=== PATIENT | male | born 1980 | race Caucasian/White ===

== ENCOUNTER → 2019-02-22 13:43 | Outpatient (CLI) | payer SELFPAY ==
--- NOTE | 2019-02-22 14:44 | CT_ITS ---
CT chest wo con HISTORY: Chest pain, dizziness, shortness of air, tobacco use ITS.REASON: x ORDERING PHYSICIAN: Ganga Hensley MD PATIENT AGE: 38 years COMPARISON: None Technique: Axial images were obtained. Sagittal, and coronal reformatted images are also generated and reviewed. All CT scans at the facility use one or more dose reduction, viz: automated exposure control, ma/kV adjustment per patient size (including targeted exams where dose is matched to indication, i.e. head), or iterative reconstruction technique. FINDINGS There is mild haziness of the anterior mediastinal fat nonspecific and may be related to residual thymic tissue. Scattered small lymph nodes are present in the mediastinum and nadeen. Normal heart size. Coronary artery calcifications are not identified There is mild hyperinflation with attenuation of the peripheral pulmonary vessels consistent with COPD. There are patchy density in the right lung base posteriorly. Calcified nodule present in the right lower lobe anteriorly. Calcified nodes are present in the subcarinal region. No suspicious pulmonary nodules are evident. There is also some patchy groundglass density in the left lung base posteriorly. Upper abdominal images show these to isodense lesions of the left hepatic lobe measuring approximately 8 and 9 mm and may represent hepatic cyst small to categorize. No acute bony findings are evident. IMPRESSION: 1. COPD. 2. Patchy groundglass density in both lung bases posteriorly nonspecific and may be due to areas of atelectasis or patchy pneumonitis 3. Other nonspecific findings as described above
== END ==
PROVIDERS: Referring Provider Internal Medicine Cardiovascular Disease; Visit Provider Internal Medicine Cardiovascular Disease
DX: R06.02 Shortness of breath (principal); R07.9 Chest pain, unspecified; Z72.0 Tobacco use
CPT/HCPCS: 71250; 93017

== ENCOUNTER → 2019-03-04 17:40 | Outpatient (CLI) | payer SELFPAY | PROVIDERS: Visit Provider Internal Medicine Cardiovascular Disease | DX: R07.9 Chest pain, unspecified (principal); R06.02 Shortness of breath; R94.31 Abnormal electrocardiogram [ECG] [EKG]; R53.83 Other fatigue; F17.200 Nicotine dependence, unspecified, uncomplicated | CPT/HCPCS: 95806 ==

== ENCOUNTER 2019-12-06 16:26 | Emergency (ER) | payer MEDICAID, SELFPAY ==
[2019-12-06 16:36] VITALS: BP 122/75; PULSE 78; RESP 20; TEMP 36.8; O2SAT 99; BMI 27.0
[2019-12-06 16:44] VITALS: BP 122/75; PULSE 78; RESP 20; TEMP 36.8; O2SAT 99; BMI 27.8
--- NOTE | 2019-12-06 17:03 | HMH.EDUTC ---
[facility] [place] Clinical Impression: Dental abscess Disposition: Home, Self-Care Condition on Discharge: Good Instructions: Tooth Abscess Additional Instructions: Drink plenty of fluids. Take the ibuprofen for pain that I sent to your pharmacy. Take the medications as directed. Follow up with your regular doctor. You have to follow up with a dentist. GO TO THE ER FOR ANY WORSENING SYMPTOMS Prescriptions: Ibuprofen [Ibuprofen 800mg Tablet] 800 mg PO Q8HP PRN #30 tab PRN Reason: Moderate Pain Transmission Status: Received by [facility] Amoxicillin/Potassium Clav [Augmentin 875-125 Tablet] 1 tab PO Q12H 10 Days #20 tab Transmission Status: Received by [facility] Referrals: Provider,Referral, [Primary Care Provider] - Time of Disposition: 17:06 Medical Decision Making - Medical Records Medical records reviewed: Yes: I reviewed the patient's medical records. - [place] Inquiry Pt receiving controlled substance: No Vital Signs: 12/06/19 16:36 12/06/19 16:44 12/06/19 17:08 Temperature 98.2 F 98.2 F 98.2 F Temperature Source Oral Oral Oral Pulse Rate 78 Pulse Rate [Left Radial] 78 78 Respiratory Rate 20 20 20 Blood Pressure 122/75 Blood Pressure [Left Arm] 122/75 122/75 Blood Pressure Mean [Left Arm] 90 90 Blood Pressure Source Automatic Cuff Blood Pressure Source [Left Arm] Automatic Cuff Automatic Cuff Blood Pressure Position Sitting Blood Pressure Position [Left Arm] Sitting Sitting 02 Sat by Pulse Oximetry 99 99 Oxygen Delivery Method Room Air Room Air Room Air - Lab Data Lab results reviewed: No: I reviewed the patient's lab results. Orders (Tests/Meds): ED MEDICATIONS Discontinued Medications Generic Name Dose Route Start Last Admin Trade Name Freq PRN Reason Stop Dose Admin Ceftriaxone Sodium 1 gm 12/06/19 17:02 12/06/19 17:03 Rocephin 1gm Vial IM 12/06/19 17:03 1 gm ONCE ONE Administration Protocol Ketorolac Tromethamine 60 mg 12/06/19 17:02 12/06/19 17:03 Toradol 60mg/2ml Vial IM 12/06/19 17:03 60 mg ONCE ONE Administration Lidocaine HCl 0 ml 12/06/19 17:02 12/06/19 17:03 Lidocaine 1% 10ml Mdv IM 12/06/19 17:03 2.1 ml ONCE ONE Administration [facility] [place] - General Stated complaint: dental pain Time Seen by Provider: 12/06/19 17:03 Mode of Arrival: Family Vehicle Source of Information: Patient Limitations: No Limitations Description of Symptoms (Recalled from Triage Doc. by RN): PT C/O LT JAW PAIN SINCE YESTERDAY THAT HAS WORSENED TODAY AND GIVING HIM A CORNEJO. PT REPORTS THAT IT FEELS LIKE DENTAL PAIN, BUT HES MISSING TEETH. HEENT Symptoms (Recalled from RN notes): Yes Resp Symptoms (Recalled from RN notes): No Skin Symptoms (Recalled from RN notes): No MS Symptoms (Recalled from RN notes): No Functional Status (Recalled from RN notes): N/A - History of Present Illness Provider Complaint: He c/o left upper dental pain and left jaw pain for the past 3 days. He states that he has a history of multiple cavities and he thinks he has an abscess. He denies any fever or chills. - Related Data Home Medications Medication Instructions Recorded Confirmed Buprenorphine HCl/Naloxone HCl 1 each SL DAILY 02/09/19 04/11/19 [Suboxone 8 mg-2 mg Sl Film] Previous Rx's Medication Instructions Recorded omeprazole 40 mg capsule,delayed 40 mg PO DAILY #30 cap 02/10/19 release Amoxicillin/Potassium Clav 1 tab PO Q12H 10 Days #20 tab 12/06/19 [Augmentin 875-125 Tablet] Ibuprofen [Ibuprofen 800mg 800 mg PO Q8HP PRN #30 tab 12/06/19 Tablet] Allergies Allergy/AdvReac Type Severity Reaction Status Date / Time No Known Allergies Allergy Verified 10/12/19 10:01 - Worker's Comp Is this a Worker's Comp case?: No [facility] History - Hepatitis A Screen Drug use history?: No High risk sexual behaviors?: No History of sexually transmitted infection?: No Currently employe
[2019-12-06 17:08] VITALS: BP 122/75; PULSE 78; RESP 20; TEMP 36.8; O2SAT 99
== END 2019-12-06 17:16 | disposition home or self-care (01) ==
PROVIDERS: Emergency Provider Nurse Practitioner Family
DX: K04.7 Periapical abscess without sinus (principal); F17.210 Nicotine dependence, cigarettes, uncomplicated; K02.9 Dental caries, unspecified
CPT/HCPCS: 96372; 99201

== ENCOUNTER 2020-09-14 17:56 | Emergency (ER) | payer MEDICAID, SELFPAY ==
[2020-09-14 18:00] VITALS: BP 125/77; PULSE 84; RESP 14; TEMP 36.6; O2SAT 98; BMI 27.0
--- NOTE | 2020-09-14 18:21 | HMH.EDUTC ---
[facility] Disposition Clinical Impression: Dental abscess, Need for Tdap vaccination Laceration of right index finger Qualifiers: Encounter type: initial encounter Damage to nail status: without damage Foreign body presence: without foreign body Qualified Code(s): S61.210A - Laceration without foreign body of right index finger without damage to nail, initial encounter Disposition: Home, Self-Care Condition on Discharge: Good Instructions: How to Care for a Laceration After Repair, Tooth Abscess, Tetanus, Diphtheria, Pertussis (Tdap) Vaccine Additional Instructions: Drink plenty of fluids. You have to be seen by a dentist. Make sure you call and get yourself an appointment [place]. Take tylenol or ibuprofen for pain or fever. Watch the injury to your finger for any signs of infection, such as redness, drainage, swelling etc. Follow up with your regular doctor. GO TO THE ER FOR ANY WORSENING SYMPTOMS Prescriptions: Ibuprofen [Ibuprofen 600mg Tablet] 600 mg PO Q6HP PRN #30 tab PRN Reason: Mild Pain Transmission Status: Received by [facility] Amoxicillin/Potassium Clav [Augmentin 875-125 Tablet] 1 tab PO Q12H 10 Days #20 tab Transmission Status: Received by [facility] Mupirocin [Bactroban 2% Ointment 22gm tube] 1 applicatio TP TID 7 Days #1 tube Transmission Status: Received by [facility] Referrals: Kelvin Weiss [Primary Care Provider] - Time of Disposition: 18:34 Medical Decision Making - Medical Records Medical records reviewed: No: I reviewed the patient's medical records. - [place] Inquiry Pt receiving controlled substance: No Vital Signs: 09/14/20 18:00 09/14/20 18:45 Temperature 97.9 F 97.9 F Temperature Source Oral Pulse Rate 84 Pulse Rate [Right Brachial] 84 Respiratory Rate 14 14 Blood Pressure 125/77 Blood Pressure [Right Arm] 125/77 Blood Pressure Mean [Right Arm] 93 Blood Pressure Source [Right Arm] Automatic Cuff Blood Pressure Position [Right Arm] Sitting 02 Sat by Pulse Oximetry 98 Oxygen Delivery Method Room Air Orders (Tests/Meds): ED MEDICATIONS Discontinued Medications Generic Name Dose Route Start Last Admin Trade Name Freq PRN Reason Stop Dose Admin Ceftriaxone Sodium 1 gm 09/14/20 18:31 09/14/20 18:35 Ceftriaxone 1gm Vial IM 09/14/20 18:32 1 gm ONCE ONE Administration Protocol Lidocaine HCl 0 ml 09/14/20 18:31 09/14/20 18:35 Lidocaine 1% 5ml Pf Vial IM 09/14/20 18:32 2.1 ml ONCE ONE Administration Tetanus/Reduced Diphtheria/Acell Pertussis 0.5 ml 09/14/20 18:31 09/14/20 18:35 Tet/Diphth/Pert-Adult 0.5ml Syringe IM 09/14/20 18:32 0.5 ml .ONCE ONE Administration [facility] HPI - General Stated complaint: DENTAL PAIN Time Seen by Provider: 09/14/20 18:21 Mode of Arrival: Ambulatory Limitations: No Limitations Description of Symptoms (Recalled from Triage Doc. by RN): PATIENT C/O SWELLING IN ROOF OF MOUTH X 3 DAYS AND CUT ON LEFT INDEX FINGER THAT'S POSSIBLY INFECTED HEENT Symptoms (Recalled from RN notes): No Resp Symptoms (Recalled from RN notes): No Skin Symptoms (Recalled from RN notes): No MS Symptoms (Recalled from RN notes): No Functional Status (Recalled from RN notes): wnl - History of Present Illness Provider Complaint: He states that he has multiple abscessed teeth and he has a knot of infection on the roof of his mouth. This has been present for about a week. He denies any fever or chills. He also has a superficial laceration on his right index finger. He states that he was cut with a piece of metal about 4 days ago. His tetanus immunization is not up to date. - Related Data Home Medications Medication Instructions Recorded Confirmed Buprenorphine HCl/Naloxone HCl 1 each SL DAILY 02/09/19 04/11/19 [Suboxone 8 mg-2 mg Sl Film] Previous Rx's Medication Instructions Recorded omeprazole 40 mg capsule,delayed 40 mg PO DAILY #30 cap 02/10/19
[2020-09-14 18:45] VITALS: BP 125/77; PULSE 84; RESP 14; TEMP 36.6; O2SAT 98
== END 2020-09-14 18:47 | disposition home or self-care (01) ==
LOC: UTC 18:00
PROVIDERS: Emergency Provider Nurse Practitioner Family; PCP Family Medicine
DX: S61.210A Laceration without foreign body of right index finger without damage to nail, initial encounter (principal); K04.7 Periapical abscess without sinus; Z23 Encounter for immunization; K21.9 Gastro-esophageal reflux disease without esophagitis; F17.210 Nicotine dependence, cigarettes, uncomplicated; W26.8XXA Contact with other sharp object(s), not elsewhere classified, initial encounter
CPT/HCPCS: 90471; 90715; 96372; 99202; G0463

== ENCOUNTER 2020-11-05 10:28 | Emergency (ER) | payer MEDICAID, SELFPAY ==
[2020-11-05 10:30] VITALS: BP 126/82; PULSE 74; RESP 14; TEMP 36.8; O2SAT 98; BMI 27.1
--- NOTE | 2020-11-05 10:53 | XR_ITS ---
PROCEDURE: XR KNEE RT 3V CLINICAL INDICATION: pain COMPARISON: No exams were available for comparison FINDINGS: No fracture or dislocation. No lytic or blastic change. There is normal mineralization. The joint spaces are well-preserved. No significant degenerative/arthritic changes. No erosive changes evident. Other findings:None. IMPRESSION: No acute findings. Dictated by: Niraj Amaya MD 11/05/2020 12:19 Niraj Amaya MD in [place] 11/05/2020 12:19
--- NOTE | 2020-11-05 11:25 | HMH.EDUTC ---
[facility] [place] Disposition Clinical Impression: Right knee pain Qualifiers: Chronicity: acute Qualified Code(s): M25.561 - Pain in right knee Disposition: Home, Self-Care Condition on Discharge: Good Instructions: DI for Knee Pain Additional Instructions: Rest the extremity, apply ice for 15 minutes as tolerated three or four times per day, Wear the liv wrap for compression, Elevate the extremity as tolerated while you are resting. Take ibuprofen for pain. I sent in a prescription to your pharmacy. Follow up with Dr. Salazar (orthopedics). I put in a referral but you need to call her office and schedule an appointment. Follow up with your regular doctor. GO TO THE ER FOR ANY WORSENING SYMPTOMS Prescriptions: Ibuprofen [Ibuprofen 800mg Tablet] 800 mg PO Q8HP PRN #30 tab PRN Reason: Moderate Pain Transmission Status: Received by [facility] Referrals: PCP,Omayra [Primary Care Provider] - Carmelita Salazar MD [Physician] - Time of Disposition: 11:34 Medical Decision Making - Medical Records Medical records reviewed: No: I reviewed the patient's medical records. - [place] Inquiry Pt receiving controlled substance: No Vital Signs: 11/05/20 10:30 11/05/20 11:35 Temperature 98.3 F 98.3 F Temperature Source Oral Pulse Rate 74 Pulse Rate [Right Brachial] 74 Respiratory Rate 14 14 Blood Pressure 126/82 Blood Pressure [Right Arm] 126/82 Blood Pressure Mean [Right Arm] 96 Blood Pressure Source [Right Arm] Automatic Cuff Blood Pressure Position [Right Arm] Sitting 02 Sat by Pulse Oximetry 98 Oxygen Delivery Method Room Air - Radiology Data #1 Image(s): Knee Image Reviewed: Yes I reviewed the patient's radiology image Preliminary Findings: Normal/NAD PROCEDURE: XR KNEE RT 3V CLINICAL INDICATION: pain COMPARISON: No exams were available for comparison FINDINGS: No fracture or dislocation. No lytic or blastic change. There is normal mineralization. The joint spaces are well-preserved. No significant degenerative/arthritic changes. No erosive changes evident. Other findings:None. IMPRESSION: No acute findings. Dictated by: Niraj Amaya MD 11/05/2020 12:19 Niraj Amaya MD in [place] 11/05/2020 12:19 [facility] [place] HPI - General Stated complaint: rt knee pain Time Seen by Provider: 11/05/20 10:30 Mode of Arrival: Ambulatory Source of Information: Patient Limitations: No Limitations Description of Symptoms (Recalled from Triage Doc. by RN): PATIENT C/O RIGHT KNEE PAIN THAT STARTED THIS MORNING. STATES HE WAS MOVING HEAVY STUFF YESTERDAY HEENT Symptoms (Recalled from RN notes): No Resp Symptoms (Recalled from RN notes): No Skin Symptoms (Recalled from RN notes): No MS Symptoms (Recalled from RN notes): Yes Functional Status (Recalled from RN notes): WNL - History of Present Illness Provider Complaint: He states that he has been having right knee pain for the past 3 days. He has a history of episodes of this pain. He denies any known injury. - Related Data Home Medications Medication Instructions Recorded Confirmed Buprenorphine HCl/Naloxone HCl 1.5 each SL DAILY 11/05/20 11/05/20 [Suboxone 8mg/2mg ODT] Previous Rx's Medication Instructions Recorded Ibuprofen [Ibuprofen 800mg 800 mg PO Q8HP PRN #30 tab 11/05/20 Tablet] Allergies Allergy/AdvReac Type Severity Reaction Status Date / Time No Known Allergies Allergy Verified 10/12/19 10:01 - Worker's Comp Is this a Worker's Comp case?: No [facility] History - Hepatitis A Screen Drug use history?: No High risk sexual behaviors?: No History of sexually transmitted infection?: No Currently employed?: No Childcare worker?: No Do you have indoor plumbing?: Yes Do you have electricity?: Yes Attestation statement:: This patient has been screened for Hepatitis A risk factors. I have reviewed the patient's past medical history: Yes Medical History: Reports:: Gastroesophageal Reflux
[2020-11-05 11:35] VITALS: BP 126/82; PULSE 74; RESP 14; TEMP 36.8; O2SAT 98
== END 2020-11-05 11:38 | disposition home or self-care (01) ==
PROVIDERS: Emergency Provider Nurse Practitioner Family
DX: M25.561 Pain in right knee (principal); K21.9 Gastro-esophageal reflux disease without esophagitis; F17.210 Nicotine dependence, cigarettes, uncomplicated
CPT/HCPCS: 73562; 99202; G0463

== ENCOUNTER 2021-02-09 13:21 | Emergency (ER) | payer MEDICAID, SELFPAY ==
--- NOTE | 2021-02-09 13:25 | XR_ITS ---
PROCEDURE INFORMATION: Exam: XR Right Shoulder Exam date and time: 02/09/2021 1:25 PM Age: 40 years old Clinical indication: Right; Patient HX: PT C/O RT shoulder pain since pulling alot of electrical wire TECHNIQUE: Imaging protocol: XR Right shoulder. Views: 2 or more views. COMPARISON: CHESTWO CT chest wo con 02/22/2019 2:50 PM FINDINGS: Bones/joints: Normal. Soft tissues: Normal. IMPRESSION: No acute findings.
[2021-02-09 13:40] VITALS: BP 129/79; PULSE 61; RESP 19; TEMP 37.1; O2SAT 97; BMI 27.3
--- NOTE | 2021-02-09 14:37 | HMH.EDUTC ---
[facility] [place] Clinical Impression: Shoulder pain Qualifiers: Chronicity: unspecified Laterality: right Qualified Code(s): M25.511 - Pain in right shoulder Disposition: Home, Self-Care Condition on Discharge: Good Additional Instructions: *Ibuprofen wendy 8 hours with meal as needed for pain/inflammation *Not additional anti-inflammatory like motrin, aleve, advil with the above amount of ibuprofen. You can still take Tylenol every 4 hours as needed if you need something else for pain *Ice 20 minutes every 2 hours for the first 48 hours after the initial injury followed by moist heat every 20 minutes 3-4 times a day to affected area *Keep this area active, no movement leads to more stiffness, However take it easy and avoid heavy lifting pushing or pulling *Follow up with you family doctor if no improvement for further treatment Prescriptions: Ibuprofen [Ibuprofen 800mg Tablet] 800 mg PO TIDP PRN #20 tab PRN Reason: Moderate Pain Transmission Status: [facility]ending to [facility] Referrals: Kelvin Weiss [Primary Care Provider] - As needed Time of Disposition: 14:50 Medical Decision Making - [place] Inquiry Pt receiving controlled substance: No [place] was queried for this patient: No Vital Signs: 02/09/21 13:40 Temperature 98.7 F Temperature Source Oral Pulse Rate [Right Brachial] 61 Respiratory Rate 19 Blood Pressure [Right Arm] 129/79 Blood Pressure Mean [Right Arm] 95 Blood Pressure Source [Right Arm] Automatic Cuff Blood Pressure Position [Right Arm] Sitting 02 Sat by Pulse Oximetry 97 Oxygen Delivery Method Room Air - Radiology Data #1 Image(s): Shoulder Image Reviewed: Yes I have reviewed radiologist's interpretation IMPRESSION: No acute findings [facility] [place]PI - General Stated complaint: pain RT shoulder 3 days Time Seen by Provider: 02/09/21 14:37 Mode of Arrival: Ambulatory Source of Information: Patient Limitations: No Limitations Description of Symptoms (Recalled from Triage Doc. by RN): PATIENT C/O RIGHT SHOULDER PAIN X 4 DAYS. NO KNOWN INJURY HEENT Symptoms (Recalled from RN notes): No Resp Symptoms (Recalled from RN notes): No Skin Symptoms (Recalled from RN notes): No MS Symptoms (Recalled from RN notes): Yes Functional Status (Recalled from RN notes): WNL - History of Present Illness Provider Complaint: Patient states that he was pulling wire about a week ago and thinks he may have over did it States that he has been having pain on and off with certain movements in his right shoulder State that he has been able to raise it and move it but at times feels like it is sore and hurts Denies known injury - Related Data Home Medications Medication Instructions Recorded Confirmed Buprenorphine HCl/Naloxone HCl 1.5 each SL DAILY 11/05/20 11/05/20 [Suboxone 8mg/2mg ODT] Previous Rx's Medication Instructions Recorded Ibuprofen [Ibuprofen 800mg 800 mg PO Q8HP PRN #30 tab 11/05/20 Tablet] Ibuprofen [Ibuprofen 800mg 800 mg PO TIDP PRN #20 tab 02/09/21 Tablet] Allergies Allergy/AdvReac Type Severity Reaction Status Date / Time No Known Allergies Allergy Verified 10/12/19 10:01 - Worker's Comp Is this a Worker's Comp case?: No [facility] History - Hepatitis A Screen Drug use history?: No High risk sexual behaviors?: No History of sexually transmitted infection?: No Currently employed?: No Childcare worker?: No Do you have indoor plumbing?: Yes Do you have electricity?: Yes Attestation statement:: This patient has been screened for Hepatitis A risk factors. I have reviewed the patient's past medical history: Yes Medical History: Reports:: Gastroesophageal Reflux Disease(GERD) Denies:: Diabetes Mellitus Type 1, Diabetes Mellitus Type 2, Seizures Other Surgeries: Yes: Cardiac Catheterization, Other (Jaw Sx) Fractures: Yes - Social History Smoking Status: Current every day smoker Tobacco Type: cigarettes # Packs/Day (cigarettes): 1 #Yr
[2021-02-09 15:15] VITALS: BP 129/79; PULSE 61; RESP 19; TEMP 37.1; O2SAT 97
== END 2021-02-09 15:16 | disposition home or self-care (01) ==
PROVIDERS: Emergency Provider Nurse Practitioner; PCP Family Medicine
DX: M25.511 Pain in right shoulder (principal); X50.0XXA Overexertion from strenuous movement or load, initial encounter; K21.9 Gastro-esophageal reflux disease without esophagitis; F17.210 Nicotine dependence, cigarettes, uncomplicated
CPT/HCPCS: 73030; 99202; G0463

== ENCOUNTER → 2021-06-20 10:41 | Outpatient (CLI) | payer MEDICAID, SELFPAY | PROVIDERS: Visit Provider Nurse Practitioner | DX: Z20.822 Contact with and (suspected) exposure to COVID-19 (principal); U07.1 COVID-19 | CPT/HCPCS: C9803; U0003; U0005 ==

== ENCOUNTER 2021-10-29 09:21 | Emergency (ER) | payer MEDICAID, SELFPAY ==
[2021-10-29 10:12] VITALS: BP 121/89; PULSE 79; RESP 19; TEMP 37; O2SAT 96; BMI 27.9
--- NOTE | 2021-10-29 10:48 | HMH.EDUTC ---
[facility] [place] Clinical Impression: Shingles Qualifiers: Herpes zoster complications: without complications Qualified Code(s): B02.9 - Zoster without complications Disposition: Home, Self-Care Condition on Discharge: Good Instructions: Shingles, DI for Shingles Additional Instructions: Take the medications as directed. Drink plenty of water with the acyclovir. Follow up with your primary care physician. GO TO THE ER FOR ANY WORSENING SYMPTOMS OR CONCERNS Don't put the triamcinolone cream on your groin area. Prescriptions: Acyclovir 800 mg PO 5XDAY 7 Days #35 tab Transmission Status: Received by [facility] predniSONE [Deltasone 10mg tablet] 10 mg PO DAILY 9 Days #21 tab Transmission Status: Received by [facility] Triamcinolone Acetonide 1 applicatio TP TIDP PRN 7 Days #1 gm PRN Reason: Itching Transmission Status: Received by [facility] Referrals: Provider,Referral, [Primary Care Provider] - Time of Disposition: 11:35 Medical Decision Making - Medical Records Medical records reviewed: No: I reviewed the patient's medical records. - [place] Inquiry Pt receiving controlled substance: No Vital Signs: 10/29/21 10:12 10/29/21 11:36 Temperature 98.6 F 98.6 F Temperature Source Oral Pulse Rate 79 Pulse Rate [Left] 79 Respiratory Rate 19 19 Blood Pressure 121/89 Blood Pressure [Right Arm] 121/89 Blood Pressure Mean [Right Arm] 99 02 Sat by Pulse Oximetry 96 [facility] [place]PI - General Stated complaint: rash Time Seen by Provider: 10/29/21 11:09 Mode of Arrival: Ambulatory Source of Information: Spouse Limitations: No Limitations Description of Symptoms (Recalled from Triage Doc. by RN): pt c/o a rash on his RLQ x1 wk. HEENT Symptoms (Recalled from RN notes): No Resp Symptoms (Recalled from RN notes): No Skin Symptoms (Recalled from RN notes): Yes MS Symptoms (Recalled from RN notes): No Functional Status (Recalled from RN notes): wnl - History of Present Illness Provider Complaint: He has had a rash on his right lower quadrant of his abdomen for the past 1 week. - Related Data Home Medications Medication Instructions Recorded Confirmed Buprenorphine HCl/Naloxone HCl 1.5 each SL DAILY 11/05/20 11/05/20 [Suboxone 8mg/2mg ODT] Previous Rx's Medication Instructions Recorded Ibuprofen [Ibuprofen 800mg 800 mg PO Q8HP PRN #30 tab 11/05/20 Tablet] Ibuprofen [Ibuprofen 800mg 800 mg PO TIDP PRN #20 tab 02/09/21 Tablet] methylPREDNISolone [Medrol 4mg 4 mg PO DIRECTED #21 tab 02/09/21 tab] Acyclovir 800 mg PO 5XDAY 7 Days #35 tab 10/29/21 Triamcinolone Acetonide 1 applicatio TP TIDP PRN 7 Days #1 10/29/21 gm predniSONE [Deltasone 10mg tablet] 10 mg PO DAILY 9 Days #21 tab 10/29/21 Allergies Allergy/AdvReac Type Severity Reaction Status Date / Time No Known Allergies Allergy Verified 10/12/19 10:01 - Worker's Comp Is this a Worker's Comp case?: No [facility] History - Hepatitis A Screen Drug use history?: No High risk sexual behaviors?: No History of sexually transmitted infection?: No Currently employed?: No Childcare worker?: No Do you have indoor plumbing?: Yes Do you have electricity?: Yes Attestation statement:: This patient has been screened for Hepatitis A risk factors. I have reviewed the patient's past medical history: Yes Medical History: Reports:: Gastroesophageal Reflux Disease(GERD) Denies:: Diabetes Mellitus Type 1, Diabetes Mellitus Type 2, Seizures Other Surgeries: Yes: Cardiac Catheterization, Other (Jaw Sx) Fractures: Yes - Social History Smoking Status: Current every day smoker Tobacco Type: cigarettes # Packs/Day (cigarettes): 1 #Yrs smoked (if former smoker): 20 Alcohol Intake: never Alcohol Intake Frequency:: 3 or more drinks per day Substance Use Type: denies use Occupational Status: other Housing: house Household Members: spouse Family Hx:: Coronary Artery Disease Comm
[2021-10-29 11:36] VITALS: BP 121/89; PULSE 79; RESP 19; TEMP 37
== END 2021-10-29 11:37 | disposition home or self-care (01) ==
PROVIDERS: Emergency Provider Nurse Practitioner Family
DX: B02.9 Zoster without complications (principal); R21 Rash and other nonspecific skin eruption; R06.02 Shortness of breath; R53.82 Chronic fatigue, unspecified; K21.9 Gastro-esophageal reflux disease without esophagitis; R40.0 Somnolence; F17.210 Nicotine dependence, cigarettes, uncomplicated; Z82.49 Family history of ischemic heart disease and other diseases of the circulatory system; Z79.1 Long term (current) use of non-steroidal anti-inflammatories (NSAID); Z79.52 Long term (current) use of systemic steroids; Z79.899 Other long term (current) drug therapy
CPT/HCPCS: 99213; G0463

== ENCOUNTER 2023-02-17 15:23 | Emergency (ER) | payer MEDICAID, SELFPAY ==
[2023-02-17 15:25] VITALS: BP 141/92; PULSE 101; RESP 18; TEMP 37; O2SAT 98; BMI 27.7
--- NOTE | 2023-02-17 15:28 | XR_ITS ---
PROCEDURE INFORMATION: Exam: XR Right Ankle Exam date and time: 02/17/2023 3:27 PM Age: 42 years old Clinical indication: Pain; Ankle; Right; Additional info: Fell off of step TECHNIQUE: Imaging protocol: Radiologic exam of the right ankle. Views: 3 or more views. COMPARISON: CR XR FOOT RT MIN 3V 02/17/2023 3:26 PM FINDINGS: Bones/joints: Degenerative changes in the tibial medial malleolus and medial talus at the tibiotalar articulation compatible with chronic sequelae of prior trauma. No evidence of acute fracture or malalignment. Ankle mortise appears intact. 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 Soft tissues: Soft tissue edema noted. IMPRESSION: 1. No evidence of acute osseous abnormality in the right ankle. 2. Degenerative changes in the tibial medial malleolus and medial talus at the tibiotalar articulation compatible with chronic sequelae of prior trauma. 3. 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
--- NOTE | 2023-02-17 15:28 | XR_ITS ---
PROCEDURE INFORMATION: Exam: XR Right Foot Exam date and time: 02/17/2023 3:26 PM Age: 42 years old Clinical indication: Pain; Foot; Right; Additional info: Fell off of step TECHNIQUE: Imaging protocol: Radiologic exam of the right foot. Views: 3 or more views. COMPARISON: CR XR KNEE RT 3V 11/05/2020 10:53 AM FINDINGS: Bones/joints: No evidence of acute fracture or malalignment. Lisfranc joint appears normal in these non-weightbearing radiographs. 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 Soft tissues: Unremarkable. IMPRESSION: 1. No evidence of acute osseous abnormality in the right foot. 2. 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
--- NOTE | 2023-02-17 16:40 | EXP.UTC ---
Discharge Plan Disposition Patient Disposition: Home, Self-Care Condition: Good Prescriptions Prescriptions: No Action buprenorphine-naloxone 1 EACH tablet, sublingual 1.5 each SL DAILY ibuprofen 800 MG tablet 800 mg PO Q8HP PRN (Reason: Moderate Pain) Qty: 30 0RF ibuprofen 800 MG tablet 800 mg PO TIDP PRN (Reason: Moderate Pain) Qty: 20 0RF methylprednisolone 4 MG tablet 4 mg PO DIRECTED Qty: 21 0RF Rx Instructions: Take as directed on package instructions prednisone 10 MG tablet 10 mg PO DAILY 9 Days Qty: 21 0RF Rx Instructions: Take 40 mg for 3 days, then take 20 mg for 3 days, then take 10 mg for 3 days, then stop. triamcinolone acetonide 15 GM cream 1 applicatio TP TIDP PRN (Reason: Itching) 7 Days Qty: 1 0RF Rx Instructions: 0.1% acyclovir 800 MG tablet 800 mg PO 5XDAY 7 Days Qty: 35 0RF Referrals Follow up/Referrals: Amadeo Marroquin DO [Staff Physician] - See instructions Provider,Referral, [Primary Care Provider] - See instructions Kassy Felder DPM [Staff Physician] - See instructions Activity Restrictions/Add. Instructions Additional Instructions/Restrictions: *weight bearing as tolerated Use crutches to get around *RICE, Rest the extremity, Ice 15-20 minutes 3-4 times daily, Compress- wear the liv wrap as discussed as much as possible to help reduce swelling and pain, Elevate the extremity when at rest *Walking boot is for support and help control swelling, use it except in the shower. Be sure that is not to tight but not to loose either *Elevate when resting? *Ibuprofen 600-800mg every 6-8 hours as needed for pain an inflammation. If need something more can take Tylenol in between doses of Ibuprofen to help Immediately follow up with your family doctor for new or worsening of symptoms, or no noticeable improvement over the next 3-5 days Follow up with your Family Doctor, Orthopedics or Podiatry if pain and swelling persists Clinical Impressions Clinical Impression: Ankle sprain Qualifiers: Encounter type: initial encounter Involved ligament of ankle: unspecified ligament Laterality: right Qualified Code(s): S93.401A - Sprain of unspecified ligament of right ankle, initial encounter Instructions Patient Instructions: How to Use Crutches, How To Perform RICE (Rest, Ice, Compress, Elevate), Ibuprofen, How to Use a Walking Boot Discharge ED Provider: Brenda Fay [facility] General Stated complaint: right ankle pain Mode of Arrival: Ambulatory Source of Information: Patient Limitations: No Limitations Time Seen by Provider: 02/17/23 15:45 Description of Symptoms (Recalled from Triage Doc. by RN): Patient reports right anle pain from missing a step and rolling it at 1400 today. HEENT Symptoms (Recalled from RN notes): No Resp Symptoms (Recalled from RN notes): No Skin Symptoms (Recalled from RN notes): No MS Symptoms (Recalled from RN notes): Yes Functional Status (Recalled from RN notes): wnl History of Present Illness Provider Complaint: Patient states that he was cleaning at home and stepped back and missed a couple steps and rolled his right ankle States that he felt a pop and immediately had pain States that he has hurt this ankle several times over the last few years so he came in to get it checked Related Data Home Medications Medication Instructions Recorded Confirmed buprenorphine 8 mg-naloxone 2 mg 1.5 each SL DAILY ADDICTION 11/05/20 11/05/20 sublingual tablet Previous Rx's Medication Instructions Recorded ibuprofen 800 mg tablet 800 mg PO Q8HP PRN Moderate Pain 11/05/20 #30 tabs ibuprofen 800 mg tablet 800 mg PO TIDP PRN Moderate Pain 02/09/21 #20 tabs methylprednisolone 4 mg tablet 4 mg PO DIRECTED #21 tabs 02/09/21 acyclovir 800 mg tablet 800 mg PO 5XDAY 7 days #35 tabs 10/29/21 prednisone 10 mg tablet 10 mg PO DAILY 9 days #21 tabs 10/29/21 triamcinolone acetonide 0.025 % 1 applicatio TP T
[2023-02-17 17:07] VITALS: BP 141/92; PULSE 101; RESP 18; TEMP 37; O2SAT 98
== END 2023-02-17 17:07 | disposition home or self-care (01) ==
PROVIDERS: Emergency Provider Nurse Practitioner
DX: S93.401A Sprain of unspecified ligament of right ankle, initial encounter (principal); F17.210 Nicotine dependence, cigarettes, uncomplicated
CPT/HCPCS: 73610; 73630; 99212; 99214; G0463

== ENCOUNTER → 2023-03-02 17:25 | Outpatient (CLI) | payer MEDICAID, SELFPAY ==
--- NOTE | 2023-03-02 17:31 | MR_ITS ---
PROCEDURE INFORMATION: Exam: MR Right Lower Extremity Joint Without Contrast; Ankle Exam date and time: 03/02/2023 5:56 PM Age: 42 years old Clinical indication: Pain; Ankle; Right; Additional info: Ankle pain. Instability in ankle. Twisted ankle 2 weeks ago. TECHNIQUE: Imaging protocol: Magnetic resonance imaging of the right lower extremity without contrast. Exam focused on the ankle. COMPARISON: CR XR ANKLE RT MIN 3V 02/17/2023 3:27 PM FINDINGS: Bones/joints: Mild subchondral cystic changes within the anterior medial malleolar tip within adjacent 1.4 cm nonedematous avulsive fragment. Minimal subchondral cystic changes within the anterolateral tibial plafond with associated cartilage signal heterogeneity and thinning. Minimal medial talar process marrow edema. No joint effusion. LIGAMENTS: Distal tibiofibular syndesmosis: Unremarkable. No tear. Anterior talofibular ligament: Complete tear. Posterior talofibular ligament: Unremarkable. No tear. Calcaneofibular ligament: Complete tear. Deltoid ligament complex: Chronic sprain. Chronic avulsive fragmentation at its anterior medial malleolus attachment. TENDONS: Flexor tendons of foot: Unremarkable as visualized. Tibialis posterior tendon: Unremarkable as visualized. Peroneal tendons: Unremarkable as visualized. Extensor tendons of foot: Unremarkable as visualized. Tibialis anterior tendon: Unremarkable as visualized. Achilles tendon: Unremarkable as visualized. Tarsal canal (Sinus tarsi): Unremarkable. Normal signal of the fat. Tarsal tunnel: Unremarkable. Soft tissues: Mild soft tissue swelling about the ankle and at the dorsum of the foot. Plantar fascia: Plantar fascia is unremarkable. IMPRESSION: 1. Complete tears of the anterior talofibular and calcaneofibular ligaments. 2. Chronic deep deltoid ligament sprain with associated chronic avulsive fragmentation of the anterior medial malleolus. 3. Minimal tibiotalar joint degenerative changes. 4. Mild soft tissue swelling about the ankle and at the dorsum of the foot.
--- NOTE | 2023-03-02 17:34 | XR_ITS ---
PROCEDURE INFORMATION: Exam: XR Orbits Exam date and time: 03/02/2023 5:39 PM Age: 42 years old Clinical indication: Screening exam; Additional info: Rule out metallic foreign body for mri TECHNIQUE: Imaging protocol: XR of the orbits. Views: Minimum of 4 views COMPARISON: No relevant prior studies available. FINDINGS: Sinuses: Well aerated. No opacification. Bones/joints: Right mandibular screening fixation hardware. Left maxillary dental filling. Soft tissues: No metallic foreign body projecting over the orbits or soft tissues. IMPRESSION: No metallic foreign body projecting over the orbits or soft tissues.
== END ==
PROVIDERS: Visit Provider Orthopaedic Surgery
DX: M25.571 Pain in right ankle and joints of right foot (principal); S93.401A Sprain of unspecified ligament of right ankle, initial encounter
CPT/HCPCS: 70200; 73721

== ENCOUNTER 2023-03-12 12:21 | Outpatient (RCR) | payer MEDICAID, SELFPAY | END 2023-03-12 14:00 | disposition home or self-care (01) | LOC: PT 12:21 | PROVIDERS: Visit Provider Orthopaedic Surgery | DX: M25.571 Pain in right ankle and joints of right foot (principal); S93.401A Sprain of unspecified ligament of right ankle, initial encounter | CPT/HCPCS: 97760 ==

== ENCOUNTER 2023-05-05 16:00 | Outpatient (RCR) | payer MEDICAID, SELFPAY ==
--- NOTE | 2023-04-03 17:26 | HMH.PTOPEV ---
PT Outpatient Evaluation Rehab PT Outpatient Evaluation Start: 04/03/23 16:23 Freq: Status: Active Protocol: Document 04/03/23 16:27 JULIANO (Rec: 04/03/23 17:25 JULIANO [id number]) E-signed By Yolie Mcneil, PT Outpatient Therapy Subjective History Subjective History Pt presents to the PT clinic with reports of R ankle pain following a fall on February 17, 2023. Pt reports he is having pain and weakness throughout his R ankle. Pt reports that he went to see Dr. Morgan who stated he would not do surgery until he stopped smoking so much. Pt reports he is scheduled to follow-up with Dr. Daniel in May. Pt reports Dr. Daniel told him he had 2 torn ligaments in his R ankle. 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 PMH: none per pt Chief Complaint Pain,Stiff,Swelling,Gives out/ Unstable,Weakness Symptom Type Ache,Throb,Dull Symptoms Relieved By Rest/Positioning,Ice,Brace/ Support,OTC Meds Symptoms Aggravated By Standing,Bending/Stooping, Physical Activity,Twisting, Walking,Lifting Prior Functional Limitations None Current Functional Limitations Lifting,Housework,Driving, Sleeping,Standing,Sitting, Squatting,Recreation Activity, Walking,Stairs,Balance,Bending /Stooping Symptom Description Activity Dependent Level of pain today (0-10) 0 Pain scale - at its best (0-10) 0 Pain scale - at its worst (0-10) 9 Ankle/Foot Eval Gait Observation General Gait Pattern Observation Antalgic Gait,Decrease Weight Bear (R) Assistive Device Ambulation Assistive Device None Palpation Tenderness right Ankle/Foot Palpation Findings Tenderness,Muscle Guarding Ankle/Foot Palpation Overall Comment TTP throughout lateral aspect of ankle, over ATFL/CFL ATF TTP positive CF TTP positive ROM Ankle/Foot Dorsiflexion w/Knee Extended 10 Active Range Motion (degrees) Ankle/Foot Plantar Flexion Active Range 30 of Motion (degrees) Ankle/Foot Eversion Active Range of
== END 2023-05-05 16:05 | disposition home or self-care (01) ==
LOC: PT 16:00
PROVIDERS: Visit Provider Orthopaedic Surgery
DX: M25.571 Pain in right ankle and joints of right foot (principal)
CPT/HCPCS: 97010; 97014; 97035; 97110; 97163; 97530; G0283

== ENCOUNTER 2024-09-25 12:50 | Emergency (ER) | payer MEDICAID, SELFPAY ==
--- NOTE | 2024-09-25 12:54 | XR_ITS ---
PROCEDURE INFORMATION: Exam: XR Right Hand Exam date and time: 09/25/2024 1:12 PM Age: 44 years old Clinical indication: Injury or trauma; Fall; Blunt trauma (contusions or hematomas); Hand; Right TECHNIQUE: Imaging protocol: Radiologic exam of the right hand. Views: 3 or more views. COMPARISON: No relevant prior studies available. FINDINGS: Bones/joints: Osseous structures are intact. No fracture or malalignment. Visualized joint surfaces are preserved. Soft tissues: Unremarkable. IMPRESSION: Negative exam. No acute bony abnormalities.
--- NOTE | 2024-09-25 12:54 | XR_ITS ---
PROCEDURE INFORMATION: Exam: XR Cervical Spine Exam date and time: 09/25/2024 1:07 PM Age: 44 years old Clinical indication: Injury or trauma; Fall; Blunt trauma TECHNIQUE: Imaging protocol: Radiologic exam of the cervical spine. Views: 2 or 3 views. COMPARISON: CR XR ORBIT BILATERAL MIN 4V 03/02/2023 5:39 PM FINDINGS: Bones/joints: Normal alignment. No acute fracture or traumatic spondyloliethesis. Disc heights maintained. Anteriorly fixed healed fracture of the right mandible partially visualized. Soft tissues: Unremarkable. IMPRESSION: No acute findings.
--- NOTE | 2024-09-25 12:54 | XR_ITS ---
PROCEDURE INFORMATION: Exam: XR Left Elbow Exam date and time: 09/25/2024 1:15 PM Age: 44 years old Clinical indication: Injury or trauma; Fall; Blunt trauma (contusions or hematomas); Elbow; Left TECHNIQUE: Imaging protocol: Radiologic exam of the left elbow. Views: 3 or more views. COMPARISON: No relevant prior studies available. FINDINGS: Bones/joints: Osseous structures are intact. No fracture or malalignment. Visualized joint surfaces are preserved. Soft tissues: Unremarkable. No joint effusion detected. IMPRESSION: Negative exam. No acute bony abnormalities.
--- NOTE | 2024-09-25 14:40 | ED_ITS ---
Discharge Plan Disposition Patient Disposition: Home, Self-Care Condition: Good Prescriptions Prescriptions: New cyclobenzaprine 10 mg Tablet 10 mg PO BID PRN (Reason: Muscle Spasm) Qty: 20 0RF ibuprofen [IBU] 800 mg tablet 800 mg PO Q8HP PRN (Reason: Moderate Pain) Qty: 30 0RF No Action buprenorphine-naloxone 1 EACH tablet, sublingual 1.5 each sublingual DAILY Referrals Follow up/Referrals: Amadeo Marroquin DO [Staff Physician] - See instructions Provider,Referral, [Primary Care Provider] - See instructions Activity Restrictions/Add. Instructions Additional Instructions/Restrictions: Rest the affected extremities, Elevate them as tolerated while you are resting. Take ibuprofen for pain. I sent in a prescription to your pharmacy. Follow up with Dr. Marroquin (orthopedics). I put in a referral but you need to call his office and schedule an appointment. Follow up with your regular doctor. GO TO THE ER FOR ANY WORSENING SYMPTOMS Clinical Impressions Clinical Impression: Fall, Elbow pain, left, Hand pain, right, Neck pain Stand Alone Forms Stand Alone Forms: Work/School Release Instructions Patient Instructions: DI for Contusion, DI for Neck Pain, How to Apply an Elastic Wrap on Elbow Print Language Print Language: Slovenian Discharge ED Provider: Osvaldo Li [facility] General Stated complaint: AO 09/24/24 lt elbow, rt hand, neck Time Seen by Provider: 09/25/24 14:39 History of Present Illness Provider Complaint: He states that he was roller skating yesterday when he fell. He is having left elbow pain, right hand pain, and pain in his neck when he twists it. He denies any other symptoms or complaints. Related Data Home Medications ?Medication ?Instructions ?Recorded ?Confirmed buprenorphine 8 mg-naloxone 2 mg 1.5 each sublingual DAILY ADDICTION 11/05/20 09/25/24 sublingual tablet Previous Rx's ?Medication ?Instructions ?Recorded cyclobenzaprine 10 mg tablet 10 mg PO BID PRN Muscle Spasm #20 09/25/24 tabs ibuprofen 800 mg tablet (IBU) 800 mg PO Q8HP PRN Moderate Pain 09/25/24 #30 tabs Allergies Allergy/AdvReac Type Severity Reaction Status Date / Time No Known Allergies Allergy Verified 03/27/23 11:05 [facility] Disclaimer: The information contained in this section may have been updated after the patient was seen, as this information can be updated by other users. Medical History Daytime somnolence Fatigue SOB (shortness of breath) Social History Smoking Status: Current every day smoker tobacco type: cigarettes packs per day: 1 alcohol intake: never substance use type: denies use current occupational status: other Travel in the last 8 weeks: None household members: spouse housing: house Have you lived/traveled outside [place] in past 30 days?: No Contact w/someone who lives/traveled outside [place] past 30 days?: No Exposure to someone with infectious disease in past 14 days?: No Do you have a fever (greater than 100.4 F or 38 C)?: No Have you tested positive for COVID-19: No Exposed to someone with COVID-19 in past 14 days?: No Do you have a sore throat?: No Do you have a cough?: No Do you have any weakness?: No Do you have any diarrhea?: No Are you experiencing any unusual bleeding?: No Do you have any muscle aches/pain?: No Do you have any abdominal pain?: No Are you experiencing loss of taste or smell?: No ROS Obtained: Yes All systems reviewed & no additional complaints except as documented Constitutional Constitutional: Denies chills and Denies fever(s) Eyes Eyes: Denies eye discharge ENT Ears, Nose, Mouth, and Throat: Denies dizziness, Denies otalgia, Reports neck pain and Denies sore throat Cardiovascular Cardiovascular: Denies chest pain Respiratory Respiratory: Denies shortness of breath, Denies chest congestion, Denies cough, Denies stridor and Denies wheezing Gastrointestinal Gastrointestingal: Denies nausea or vomiting Musculoskeletal Musculoskeletal: Reports as per HPI, Denies back pain and Reports neck pain Integumentary/Breasts Skin/Breast: Denies redness, Denies rash and Denies wounds Neurologic Neurologic: Denies dizziness and Denies paresthesias Allergic/Immunologic Allergic/Immunologic: Denies wheezing Physical Exam General General appearance: alert and in no apparent distress Head Head exam: atraumatic, normocephalic and normal inspection Eye Eye exam: Present normal appearance, PERRL and EOMI ENT ENT exam: Present normal exam, normal oropharynx, mucous membranes moist, TM's normal bilaterally and normal external ear exam Neck Neck exam: Present normal inspection, full ROM and trachea midline; Absent meningismus or lymphadenopathy Chest Chest inspection: Present normal inspection and symmetric chest wall rise; Absent tenderness Respiratory Respiratory exam: Present normal lung sounds bilaterally; Absent respiratory distress Cardiovascular Cardiovascular exam: Present regular rate and normal rhythm; Absent JVD Abdominal Exam Abdominal exam: Present soft and normal bowel sounds; Absent distention, tenderness or guarding Extremities Exam Extremities exam: Present normal inspection, full ROM and normal capillary refill; Absent calf tenderness Back Exam Back exam: Present normal inspection; Absent tenderness Neurological Exam Neurological exam: Present alert, oriented X3, CN II-XII intact, normal gait and reflexes normal; Absent motor sensory deficit Expanded Neurological Exam Cranial nerves: Normal: EOM function (II, III, IV, ), facial sensation (V), facial palsy (VII), gag reflex (IX), spinal accessory function (XI) and tongue deviation (XII) Cerebellar function: normal gait Motor strength - LUE: 5/5 Motor strength - RUE: 5/5 Motor strength - LLE: 5/5 Motor strength - RLE: 5/5 Sensory exam upper extremity: Normal: light touch and 2 point discrimination Sensory exam lower extremity: Normal: light touch and 2 point discrimination DTR: 2+: biceps (L), biceps (R), patellar (L), patellar (R), Achilles tendon (L) and Achilles tendon (R) Psychiatric Psychiatric exam: Present normal affect and normal mood Skin Skin exam: Present warm, dry, intact and normal color Lymphatic Lymphatic Findings: no adenopathy Medical Decision Making Medical Records Medical records reviewed: No I reviewed the patient's medical records. Screening: Per USPSTF and CDC recommendations, given the prevalence of disease in our region, it is our hospital?s policy to screen for HIV and viral Hepatitis for all patients aged 18 and over and those with ongoing risk factors. [place] Inquiry Pt receiving controlled substance: No Orders (Tests/Meds): ORDERS Category Date Time Status XR cervical spine 3V Stat Exams 09/25/24 12:54 Completed XR elbow LT min 3V Stat Exams 09/25/24 12:54 Completed XR hand RT min 3V Stat Exams 09/25/24 12:54 Completed
[2024-09-25 14:41] VITALS: BP 122/88; PULSE 71; RESP 18; TEMP 36.7; O2SAT 98; BMI 29.5
[2024-09-25 15:20] VITALS: BP 122/88; PULSE 71; RESP 18; TEMP 36.7
== END 2024-09-25 15:22 | disposition home or self-care (01) ==
PROVIDERS: Emergency Provider Nurse Practitioner Family
DX: M25.522 Pain in left elbow (principal); M79.641 Pain in right hand; M54.2 Cervicalgia
CPT/HCPCS: 72040; 73080; 73130; 99212; G0381

== ENCOUNTER 2025-02-11 14:41 | Outpatient (CLI) | payer MEDICAID, SELFPAY ==
--- NOTE | 2025-02-11 14:46 | XR_ITS ---
PROCEDURE INFORMATION: Exam: XR Right Shoulder Exam date and time: 02/11/2025 2:47 PM Age: 44 years old Clinical indication: Pain; Shoulder; Right TECHNIQUE: Imaging protocol: Radiologic exam of the right shoulder. Views: 2 or more views. COMPARISON: CR XR SHOULDER RT MIN 2V 02/09/2021 1:36 PM FINDINGS: Bones/joints: No acute fracture or dislocation. No erosions or periosteal reaction. Soft tissues: Normal. IMPRESSION: Normal shoulder x-rays.
--- OUTSIDE RECORDS SUMMARY | 2025-02-11 14:46 | XMS_ITS | Data Portability ---
Author Organization [facility] Address [address] [place] [address] Assessment Encounter Date Assessment Date Assessment LastModified by Organization Details LastModified Time 01/31/2025 01/31/2025 Patient presente d to office today for their Medicare Annual Wellness Visit. Education was provided on healthy nutrition, including a diet rich in fruits and vegetables, minimizing simple carbohydrates, salt, and saturated fats. Encouraged regular cardiovascular exercise such as walking at least 30 minutes daily, 5 times per week. Emphasized preventive health measures and educated pt on fall prevention and community-based lifestyle interventions to help reduce health risks and promote healthy living. Medicare Preventive Services Check List reviewed and printed for patient. [email or web address] Not available 01/31/2025 17:16:16 Plan of Treatment Reminders Order Date Submit Date Provider Last Modified By Organization Details Last Modified Time Details Appointments Follow Up 20 2024 05:00P Deshawn Corbin APRN Not available Not available Not available Lab PSA, serum or plasma 2024 025 [facility], [address], [address], [place], [address], 02/01/2025 14:08:00 HbA1c (hemoglob in A1c), blood 2024 025 [facility], [address], [place], [address], 02/01/2025 14:08:00 CMP, serum or plasma 2024 025 [facility], [address], [place], [address], 02/01/2025 14:07:59 rf (rheumato id factor), serum 2024 025 [facility], [address], [address], [place], [address], 02/01/2025 14:08:01 C reactive protein, QN, serum or plasma 2024 025 [facility], [address], [address], [place], [address], 02/01/2025 14:08:03 ESR (erythroc yte sedimenta tion rate), blood 2024 025 [facility], [address], [place] [address], [place], [address], 02/01/2025 14:08:02 CBC w/ auto diff 2024 025 [facility], [address], [address] [address], [place], [address], 02/01/2025 14:07:58 MICHELLE (antinucl ear antibodie s) screen, serum 2024 025 [facility], [address], [address], [place], [address], 02/01/2025 14:08:02 rapid flu (A+B) 2023 024 [facility], [address] [place] [address], [phone], 08/01/2024 14:04:49 rapid SARS CoV + SARS CoV 2 Ag, QL IA, respirato ry specimen 2023 024 [facility], [address] [place] [address], [phone], 08/01/2024 14:04:49 rapid SARS CoV + SARS CoV 2 Ag, QL IA, respirato ry specimen 2023 024 [facility], [address] [facility], [place], [address], 05/03/2024 17:22:31 rapid flu (A+B) 2023 024 [facility], [address] [place] [address], [place], [address], 05/03/2024 17:22:32 Referral orthopedi c surgeon referral 2024 025 [facility], [address], [address] , [place], [address], 02/10/2025 16:31:45 urologist referral 2024 025 [facility]stears Steven Briones, [address] [place], [place] [address]y [address], [place], [address], 02/03/2025 13:53:45 Procedures None recorded. Surgeries None recorded. Imaging XR, shoulder, 2 or more view 2024 025 [facility] ([facility]), [address] [place], [place] [address]y [address], [place], [address], 02/10/2025 16:36:06 Medication Orders Salonpas (lidocain e) 4 % topical patch 2024 025 [facility], [address] [place] [address], [id number], 02/10/2025 16:37:59 Chantix Starting Month Box 0.5 mg (11)-1 mg (42) tablets in dose pack 2024 025 [facility], [address] [place] [address], [id number], 12/28/2024 14:53:22 dexametha sone sodium phosphate 4 mg/mL injection solution 2024 025 cbuckler Not available 01/31/2025 17:17:04 Zithromax Z-Travis 250 mg tablet 2024 025 [facility], [address] [place] [address], [place], [id number], 02/01/2025 08:36:40 albuterol sulfate HFA 90 mcg/actua tion aerosol inhaler 2024 025 [facility], [address] [place] [address], [place], [id number], 12/28/2024 09:00:58 Zithromax Z-Travis 250 mg tablet 2023 025 [facility], [address] [place] [address], [place], [id number], 01/31/2025 17:16:54 fluticaso ne propionat e 50 mcg/actua tion nasal spray,[facility] 2023 025 [facility], [address] [place] [address], [place], [id number], 12/28/2024 08:35:50 albuterol sulfate 2.5 mg/3 mL (0.083 %) solution for nebulizat ion 2023 024 cbuckler Not available 05/03/2024 17:48:20 prednison e 10 mg tablet 2023 024 [facility], [address] [place] [address], [place], [id number], 08/01/2024 13:39:34 albuterol sulfate HFA 90 mcg/actua tion aerosol inhaler 2023 024 [facility], [address] [address] [place], [id number], 05/03/2024 17:23:40 Patient TargetsNo targets recorded. Patient Instructions Encounter Date Encounter Id Patient Instructions Last Modified By Organization Details Last Modified Time 01/31/2025 [id number] advance directives: care instructions efryman Not available 01/31/2025 17:44:23 learning about depression efryman Not available 01/31/2025 17:44:23 preventing falls : care instructions efryman Not available 01/31/2025 17:44:23 medicare preventive services guide efryman Not available 01/31/2025 17:44:22 Reason for Referral Urologist Referral for Incre ased frequency of urination Referring Physician: [facility], Encounter Date: 01/31/2025 Orthopedic Surgeon Referral for Pain of right shoulder region Referring Physician: Abelino Corbin [facility], Encounter Date: 02/10/2025 Results Created Date Observation Date Name Description Value Unit Range Abnormal Flag Note LastModifiedBy Organization Detail LastModifiedTime 05/03/20 24 05/03/2024 rapid flu (A+B) Flu negati ve Not Available [address], [address], 05/03/2024 16:43:03 05/03/20 24 05/03/2024 rapid flu (A+B) Type Both A & B Not Available [address], [address], 05/03/2024 16:43:03 05/03/20 24 05/03/2024 rapid SARS CoV + SARS CoV 2 Ag, QL IA, respi rator y speci men SARS CoV antigen Negati ve Not Available [address], [address], 05/03/2024 16:42:57 08/01/20 24 08/01/2024 rapid flu (A+B) Flu negati ve Not Available [address], [address], 08/01/2024 13:30:23 08/01/20 24 08/01/2024 rapid flu (A+B) Type Both A & B Not Available [address], [address], 08/01/2024 13:30:23 08/01/20 24 08/01/2024 rapid SARS CoV + SARS CoV 2 Ag, QL IA, respi rator y speci men SARS CoV antigen Negati ve Not Available [address], [address], 08/01/2024 13:30:29 02/01/20 25 02/01/2025 CBC WITH DIFFE RENTI AL/PL ATELE T WBC 10.3 x10e3 /uL 3.4-10 .8 normal Not Available [facility] ([facility]) [address] [place], [address], 02/01/2025 14:07:58 02/01/20 25 02/01/2025 CBC WITH DIFFE RENTI AL/PL ATELE T RBC 5.02 x10e6 /uL 4.14-5 .80 normal Not Available [facility] ([facility]) [address] [place], [address], 02/01/2025 14:07:58 02/01/20 25 02/01/2025 CBC WITH DIFFE RENTI AL/PL ATELE T hemoglobin 15.9 g/dL 13.0-1 7.7 normal Not Available [facility] ([facility]) [address] [place], [address], 02/01/2025 14:07:58 02/01/20 25 02/01/2025 CBC WITH DIFFE RENTI AL/PL ATELE T hematocrit 47.8 % 37.5-5 1.0 normal Not Available [facility] ([facility]) [address] [place], [address], 02/01/2025 14:07:58 02/01/20 25 02/01/2025 CBC WITH DIFFE RENTI AL/PL ATELE T MCV 95 fL 79-97 normal Not Available [facility] ([facility]) [address] [place], [address], 02/01/2025 14:07:58 02/01/20 25 02/01/2025 CBC WITH DIFFE RENTI AL/PL ATELE T MCH 31.7 pg 26.6-3 3.0 normal Not Available [facility] ([facility]) [address] [place], [address], 02/01/2025 14:07:58 02/01/20 25 02/01/2025 CBC WITH DIFFE RENTI AL/PL ATELE T MCHC 33.3 g/dL 31.5-3 5.7 normal Not Available [facility] ([facility]) [address] [place], [address], 02/01/2025 14:07:58 02/01/20 25 02/01/2025 CBC WITH DIFFE RENTI AL/PL ATELE T RDW 12.7 % 11.6-1 5.4 Not Available [facility] ([facility]) [address] [place], [address], 02/01/2025 14:07:58 02/01/20 25 02/01/2025 CBC WITH DIFFE RENTI AL/PL ATELE T platelets 291 x10e3 /uL 150-45 0 normal Not Available [facility] ([facility]) [address] [place], [address], 02/01/2025 14:07:58 02/01/20 25 02/01/2025 CBC WITH DIFFE RENTI AL/PL ATELE T neutrophils 67 % not estab. normal Not Available [facility] ([facility]) [address] [facility], [place], [address], 02/01/2025 14:07:58 02/01/20 25 02/01/2025 CBC WITH DIFFE RENTI AL/PL ATELE T lymphs 25 % not estab. normal Not Available [facility] ([facility]) [address] [facility], [place], [address], 02/01/2025 14:07:58 02/01/20 25 02/01/2025 CBC WITH DIFFE RENTI AL/PL ATELE T monocytes 5 % not estab. normal Not Available [facility] ([facility]) [address] [place], [address], 02/01/2025 14:07:58 02/01/20 25 02/01/2025 CBC WITH DIFFE RENTI AL/PL ATELE T eos 2 % not estab. normal Not Available [facility] ([facility]) [address] [facility], [place], [address], 02/01/2025 14:07:58 02/01/20 25 02/01/2025 CBC WITH DIFFE RENTI AL/PL ATELE T basos 1 % not estab. normal Not Available [facility] ([facility]) [address] [place], [address], 02/01/2025 14:07:58 02/01/20 25 02/01/2025 CBC WITH DIFFE RENTI AL/PL ATELE T immature cells PIN FEATHER MACHINE OPERATOR Not Available [facility] ([facility]) [address] [place], [address], 02/01/2025 14:07:58 02/01/20 25 02/01/2025 CBC WITH DIFFE RENTI AL/PL ATELE T neutrophils (absolute) 7.0 x10e3 /uL 1.4-7. 0 normal Not Available [facility] ([facility]) [address] [place], [address], 02/01/2025 14:07:58 02/01/20 25 02/01/2025 CBC WITH DIFFE RENTI AL/PL ATELE T lymphs (absolute) 2.6 x10e3 /uL 0.7-3. 1 normal Not Available [facility] ([facility]) [address] [facility], [place], [address], 02/01/2025 14:07:58 02/01/20 25 02/01/2025 CBC WITH DIFFE RENTI AL/PL ATELE T monocytes(ab solute) 0.5 x10e3 /uL 0.1-0. 9 normal Not Available [facility] ([facility]) [address] [facility], [place], [address], 02/01/2025 14:07:58 02/01/20 25 02/01/2025 CBC WITH DIFFE RENTI AL/PL ATELE T eos (absolute) 0.2 x10e3 /uL 0.0-0. 4 normal Not Available [facility] ([facility]) [address] [place], [address], 02/01/2025 14:07:58 02/01/20 25 02/01/2025 CBC WITH DIFFE RENTI AL/PL ATELE T baso (absolute) 0.1 x10e3 /uL 0.0-0. 2 normal Not Available [facility] ([facility]) [address] [facility], [place], [address], 02/01/2025 14:07:58 02/01/20 25 02/01/2025 CBC WITH DIFFE RENTI AL/PL ATELE T immature granulocytes 0 % not estab. Not Available [facility] ([facility]) [address] [place], [address], 02/01/2025 14:07:58 02/01/20 25 02/01/2025 CBC WITH DIFFE RENTI AL/PL ATELE T immature grans (abs) 0.0 x10e3 /uL 0.0-0. 1 Not Available [facility] ([facility]) [address] [place], [address], 02/01/2025 14:07:58 02/01/20 25 02/01/2025 CBC WITH DIFFE RENTI AL/PL ATELE T NRBC PIN FEATHER MACHINE OPERATOR Not Available [facility] ([facility]) [address], [place], [address], 02/01/2025 14:07:58 02/01/20 25 02/01/2025 CBC WITH DIFFE RENTI AL/PL ATELE T hematology comments: PIN FEATHER MACHINE OPERATOR Not Available [facility] ([facility]) [address], [place], [address], 02/01/2025 14:07:58 02/01/20 25 02/01/2025 COMP. METAB OLIC PANEL (14) glucose 85 mg/dL 70-99 normal Not Available [facility] ([facility]) [address] [place], [address], 02/01/2025 14:07:59 02/01/20 25 02/01/2025 COMP. METAB OLIC PANEL (14) BUN 14 mg/dL 6-24 normal Not Available [facility] ([facility]) [address] [place], [address], 02/01/2025 14:07:59 02/01/20 25 02/01/2025 COMP. METAB OLIC PANEL (14) creatinine 0.95 mg/dL 0.76-1 .27 normal Not Available [facility] ([facility]) [address] [place], [address], 02/01/2025 14:07:59 02/01/20 25 02/01/2025 COMP. METAB OLIC PANEL (14) eGFR 100 mL/mi n/1.7 3 >59 normal Not Available [facility] ([facility]) [address] [place], [address], 02/01/2025 14:07:59 02/01/20 25 02/01/2025 COMP. METAB OLIC PANEL (14) BUN/creatini ne ratio 15 9-20 normal Not Available [facility] ([facility]) [address] [facility], [place], [address], 02/01/2025 14:07:59 02/01/20 25 02/01/2025 COMP. METAB OLIC PANEL (14) sodium 138 mmol/ L 134-14 4 normal Not Available [facility] ([facility]) [address] [place], [address], 02/01/2025 14:07:59 02/01/20 25 02/01/2025 COMP. METAB OLIC PANEL (14) potassium 4.4 mmol/ L 3.5-5. 2 normal Not Available [facility] ([facility]) [address] [facility], [place], [address], 02/01/2025 14:07:59 02/01/20 25 02/01/2025 COMP. METAB OLIC PANEL (14) chloride 100 mmol/ L 96-106 normal Not Available [facility] ([facility]) [address] [facility], [place], [address], 02/01/2025 14:07:59 02/01/20 25 02/01/2025 COMP. METAB OLIC PANEL (14) carbon dioxide, total 20 mmol/ L 20-29 normal Not Available [facility] ([facility]) [address] [place], [address], 02/01/2025 14:07:59 02/01/20 25 02/01/2025 COMP. METAB OLIC PANEL (14) calcium 9.1 mg/dL 8.7-10 .2 normal Not Available [facility] ([facility]) [address] [place], [address], 02/01/2025 14:07:59 02/01/20 25 02/01/2025 COMP. METAB OLIC PANEL (14) protein, total 6.9 g/dL 6.0-8. 5 normal Not Available [facility] ([facility]) [address] [place], [address], 02/01/2025 14:07:59 02/01/20 25 02/01/2025 COMP. METAB OLIC PANEL (14) albumin 4.2 g/dL 4.1-5. 1 normal Not Available [facility] ([facility]) [address] [place], [address], 02/01/2025 14:07:59 02/01/20 25 02/01/2025 COMP. METAB OLIC PANEL (14) globulin, total 2.7 g/dL 1.5-4. 5 Not Available [facility] ([facility]) [address] [place], [address], 02/01/2025 14:07:59 02/01/20 25 02/01/2025 COMP. METAB OLIC PANEL (14) bilirubin, total 0.3 mg/dL 0.0-1. 2 normal Not Available [facility] ([facility]) [address] [place], [address], 02/01/2025 14:07:59 02/01/20 25 02/01/2025 COMP. METAB OLIC PANEL (14) alkaline phosphatase 113 IU/L 44-121 normal Not Available [facility] ([facility]) [address] [place], [address], 02/01/2025 14:07:59 02/01/20 25 02/01/2025 COMP. METAB OLIC PANEL (14) AST (SGOT) 27 IU/L 0-40 normal Not Available [facility] ([facility]) [address] [place], [address], 02/01/2025 14:07:59 02/01/20 25 02/01/2025 COMP. METAB OLIC PANEL (14) ALT (SGPT) 41 IU/L 0-44 normal Not Available [facility] ([facility]) [address] [facility], [place], [address], 02/01/2025 14:07:59 02/01/2002/01/2025 PSA TOTAL (REFL EX TO FREE) prostate specific Ag 0.3 NG/mL 0.0-4. 0 normal Carla ECLIA metho dolog y. Accor ding to the Ameri can [employer]rolo g[employer] Ass[employer] iatio n, Serum PSA shoul d decre ase and remai n at undet ectab le level s after radic al prost atect megan. The AUA defin es bioch emica l recur rence as an initi al PSA value 0.2 ng/mL or great er follo wed by a subse quent confi rmato ry PSA value 0.2 ng/mL or great er. Value s obtai cameron with diffe rent assay metho ds or kits canno t be used inter urrutia eably . Resul ts canno t be inter prete d as absol hoopa evide nce of the prese nce or absen ce of monty ramsey se. Not Available [facility] ([facility]) [address] [facility], [place], [address], 02/01/2025 14:08:00 02/01/2002/01/2025 PSA TOTAL (REFL EX TO FREE) reflex criteria Commen t The perce nt free PSA is perfo rmed on a refle x basis only when the total PSA is betwe en 4.0 and 10.0 ng/mL . Not Available [facility] ([facility]) [address] [facility], [place], [address], 02/01/2025 14:08:00 02/01/2002/01/2025 HEMOG LOBIN A1C hemoglobin A1C 5.9 % 4.8-5. 6 above high normal Predi abete s: 5.7 - 6.4 Diabe ayesha: >6.4 Glyce vasyl contr ol for adult s with diabe ayesha: <7.0 Not Available [facility] ([facility]) [address] [facility], [place], [address], 02/01/2025 14:08:00 02/01/20 25 02/01/2025 RHEUM ATOID FACTO R (RF) rheumatoid factor (rf) <10.0 IU/mL <14.0 Not Available [facility] ([facility]) [address] [facility], [place], [address], 02/01/2025 14:08:01 02/01/20 25 02/01/2025 ANTIN UCLEA R AB MULTI PLEX RFX 9 MICHELLE direct Negati ve negati ve Not Available [facility] ([facility]) [address] [facility], [place], [address], 02/01/2025 14:08:02 02/01/20 25 02/01/2025 SEDIM ENTAT ION RATE- WESTE RGREN sedimentatio n rate-westerg darrell 15 mm/HR 0-15 normal Not Available [facility] ([facility]) [address] [facility], [place], [address], 02/01/2025 14:08:02 02/01/20 25 02/01/2025 C-HELENA CTIVE PROTE IN, QUANT C-reactive protein, quant 7 mg/L 0-10 normal Not Available [facility] ([facility]) [address] [facility], [place], [address], 02/01/2025 14:08:03 02/01/20 25 02/01/2025 PLEAS E NOTE please note Commen t The date and/o r time of colle ction was not indic ated on the requi sitio n as requi red by state and sunil al law. The date of recei pt of the speci men was used as the colle ction date if not suppl ied. Not Available [facility] ([facility]) [address] [facility], [place], [address], 02/01/2025 14:08:04 Result Notes None recorded. Problems Name Problem SNOMED Code Status Onset Date Resolution Date Notes Provider Name and Address Organization Details Recorded Time Misused drugs in past 51722084 Active Clementine Dieudonne null, [place] - [facility] 0 17:26:19 Chronic hepatitis C 552743127 Active 020 Loki Rivers null, [place] - [facility] 0 10:07:02 Problem Notes None recorded. Procedures Surgical History Date Name Laterality Status Provider Name and Address Organization Details Recorded Time 02/01/20 25 Advance Care Planning completed Angelina Funk [place] - [facility] 01/31/2025 17:16:17 02/01/20 25 Functional Status Assessed completed Angelina Canler [place] - [facility] 01/31/2025 17:16:17 05/03/20 24 Nebulizer tx completed Abelino Corbin, DIST[employer]BUT[employer]PER[employer] [address], [place], [address], [place] - [facility] 05/03/2024 17:25:54 08/17/19 23 dental surgery completed Angelina Canler [place] - [facility] 01/31/2025 17:16:45 03/06/20 20 Systolic B/P less than 130 mm Hg completed Anna Caspercell [place] - [facility] 03/06/2020 08:49:59 03/06/20 20 Diastolic B/P less than 80 mm Hg completed Anna [place] - [facility] 03/06/2020 08:50:04 02/28/20 20 Advance Care Planning completed Anna Caspercell [place] - [facility] 02/28/2020 09:24:22 02/28/20 20 Functional Status Assessed completed Anna Caspercell [place] - [facility] 02/28/2020 09:24:22 02/08/20 20 Medication Reconcilliation completed Clementine Dieudonne [place] - [facility] 02/08/2020 17:23:23 08/17/19 02 Orthopedic Surgery completed Angelina Blessing [place] - [facility] 01/31/2025 17:16:45 Unlisted px vestibule mouth completed Clementine Dieudonne [place] - [facility] 02/08/2020 17:29:00 Jaw arthroscopy/surger y completed Clementine Dieudonne [place] - [facility] 02/08/2020 17:29:09 Cardiac Cath completed Clementine Dieudonne [place] - [facility] 02/08/2020 17:29:28 Stress test completed Angelina Funk [place] - [facility] 01/31/2025 17:16:45 Imaging Results None recorded. Procedure Notes None recorded. Medical Equipment None Reported. Allergies No known drug allergies Medications Name Sig Start Date Stop Date Status Note LastModified by Organization Details LastModified Time amoxicillin 500 mg capsule Take 1 capsule every 8 hours by oral route. 03/29 completed Not Available Not Available Not Available Flomax 0.4 mg capsule Take 1 capsule every day by oral route. 03/29 completed Not Available Not Available Not Available prednisone 10 mg tablet Take 1 tablet twice a day by oral route for 5 days. 08/01 completed Not Available Not Available Not Available albuterol sulfate 2.5 mg/3 mL (0.083 %) solution for nebulizatio n Inhale 3 mL 3 times a day by nebulizat ion route. 2023 active Not Available Not Available Not Avai lable azithromyci n 250 mg tablet TAKE 2 TABLETS BY MOUTH ON DAY 1, THEN TAKE 1 TABLET DAILY ON DAYS 2 THROUGH 5 01/31 completed Not Available Not Available Not Available ciprofloxac in 500 mg tablet Take 1 tablet every 12 hours by oral route. 05/03 completed Not Available Not Available Not Available pravastatin 10 mg tablet Take 1 tablet every day by oral route. 05/03 completed Not Available Not Available Not Available ibuprofen 400 mg tablet Take 1 tablet every 8 hours by oral route. 02/27 completed Not Available Not Available Not Available dexamethaso ne sodium phosphate 4 mg/mL injection solution Inject 1 mL as needed by intramusc ular route. 01/31 completed Not Available Not Available Not Available albuterol sulfate HFA 90 mcg/actuati on aerosol inhaler Inhale 1 puff every 4 hours by inhalatio n route as needed, for shortness of breath. 2024 active Not Available Not Available Not Avai lable fluticasone propionate 50 mcg/actuati on nasal spray,suspe nsion Dexter 1 spray every day by intranasa l route. 12/27 completed Not Available Not Available Not Available buprenorphi ne 8 mg-naloxone 2 mg sublingual tablet dissolve 1 and 1/2 tablets under the tongue once a day 02/10 completed Not Available Not Available Not Available Uroxatral 10 mg tablet,exte nded release Take 1 tablet every day by oral route. 05/03 completed Not Available Not Available Not Available varenicline tartrate 0.5 mg (11)-1 mg (42) tablets in a dose pack USE directed active Not Available Not Available No t Available Suboxone 8 mg-[address] 2 films every day by sublingua l route. 12/27 completed Not Available Not Available Not Available Sublocade 300 mg/1.5 mL solution,ex tended release subcutaneou s syringe INJECT 300MG SUBCUTANE OUSLY ONCE MONTHLY active Not Available Not Available No t Available Salonpas (lidocaine) 4 % topical patch Apply 1 patch every day by topical route. 2024 active Not Available Not Available Not Avai lable Vitals Date Recorded Body height Body mass index (BMI) Body weight Body temperature Heart rate Oxygen saturation Oxygen saturation in Arterial blood by Pulse oximetry Respiratory rate Systolic And Diastolic Provider Name and Address Organization Details Last Updated DateTime 5 185.42 cm 29.6 kg/m2 409785. 69 g 98 [degF] 88 /min 97 % 97 % 18 /min 144/88 mm[Hg] Rosa Mejía [place] - [facility] 5 18:12:25 Date Recorded Body height Body mass index (BMI) Body weight Heart rate Oxygen saturation Oxygen saturation in Arterial blood by Pulse oximetry Respiratory rate Systolic And Diastolic Provider Name and Address Organization Details Last Updated DateTime 5 185.42 cm 29.7 kg/m2 787363. 28 g 86 /min 95 % 95 % 18 /min 136/86 mm[Hg] Angelina Funk [place] - [facility] 5 17:25:58 Date Recorded Body height Body mass index (BMI) Body weight Heart rate Oxygen saturation Oxygen saturation in Arterial blood by Pulse oximetry Respiratory rate Systolic And Diastolic Provider Name and Address Organization Details Last Updated DateTime 5 185.42 cm 29.9 kg/m2 034740. 47 g 81 /min 97 % 97 % 18 /min 124/78 mm[Hg] Angelina Funk [place] - [facility] 5 15:06:53 Date Recorded Heart rate Oxygen saturation Oxygen saturation in Arterial blood by Pulse oximetry Respiratory rate Body temperature Body weight Systolic And Diastolic Provider Name and Address Organization Details Last Updated DateTime 4 80 /min 98 % 98 % 20 /min 98 [degF] 907361. 91 g 118/78 mm[Hg] Angelina Funk [place] - [facility] 4 16:43:55 Date Recorded Body height Respiratory rate Body mass index (BMI) Body weight Body temperature Heart rate Oxygen saturation Oxygen saturation in Arterial blood by Pulse oximetry Systolic And Diastolic Provider Name and Address Organization Details Last Updated DateTime 4 185.42 cm 18 /min 29.4 kg/m2 038725. 1 g 97.9 [degF] 84 /min 96 % 96 % 136/84 mm[Hg] Rosa Merazmari [place] - [facility] 4 13:29:19 Social History Question Answer Notes LastModified by Organizat ion Details LastModified Time Tobacco Smoking Status Current Every Day Smoker Clementine shen, [place] - [facility] 02/08/2020 17:27:23 Do You Have An Advance Directive? No Information not available 02/28/2020 How Many Years Have You Consumed Alcohol? 23 Information not available 01/31/2025 Are You Blind Or Do You Have Difficulty Seeing? No Information not available 08/01/2024 Is Blood Transfusion Acceptable In An Emergency? Yes Information not available 01/31/2025 What Is Your Level Of Caffeine Consumption? Heavy Information not available 02/08/2020 How Much Tobacco Do You Chew? None Information not available 02/28/2020 Are You Deaf Or Do You Have Serious Difficulty Hearing? No Information not available 08/01/2024 What Type Of Diet Are You Following? REGULAR Information not available 02/08/2020 Which Illicit Or Recreational Drugs Have You Used? None Information not available 02/08/2020 What Is The Highest Grade Or Level Of School You Have Completed Or The Highest Degree You Have Received? [id number] Information not available 01/31/2025 Have There Been Any Changes To Your Family Or Social Situation? No Information not available 08/01/2024 What Is The Fluoride Status Of Your Home? Unknown Information not available 08/01/2024 Hard Of Hearing Or Deaf In One Or Both Ears? 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 No Information not available 02/08/2020 Live Alone Or With Others? With Others Information not available 02/08/2020 Do You Have A Medical Power Of Process Worker? No Information not available 08/01/2024 What Was The Date Of Your Most Recent Tobacco Screening? 01/31/2025 Information not available 01/31/2025 How Many Children Do You Have? 5 Information not available 02/08/2020 Do You Use Protection Against STDs? No Information not available 01/31/2025 What Is Your Relationship Status? Information not available 02/08/2020 Do You Use Your Seat Belt Or Car Seat Routinely? Yes Information not available 01/31/2025 Seat Belts Used Routinely Yes Information not available 02/08/2020 Are You Sexually Active? Yes Information not available 02/08/2020 Smoke Alarm In Home Yes Information not available 02/08/2020 Do You Have Smoke And Carbon Monoxide Detectors In Your Home? Yes Information not available 08/01/2024 At What Age Did You Start Smoking Tobacco? 15 Information not available 01/31/2025 Are You Passively Exposed To Smoke? Yes Information not available 02/08/2020 How Much Tobacco Do You Smoke? 0.5 PPD Taking Chantix To Try To Stop Smoking Information not available 01/31/2025 General Stress Level Medium Information not available 02/08/2020 Do You Use Sunscreen Routinely? No Information not available 01/31/2025 Has Tobacco Cessation Counseling Been Provided? No Information not available 08/01/2024 How Many Years Have You Smoked Tobacco? 23 Information not available 02/08/2020 Do You Have Difficulty Walking Or Climbing Stairs? No Information not available 08/01/2024 Sex: Male Functional Status Question Answer Note LastModified by Organizat ion Details LastModified Time How many times per week do you consume alcohol? 1-2 times per week Information not available 08/01/2024 Do you or have you ever used smokeless tobacco? Never used smokeless tobacco Information not available 02/08/2020 Are you currently employed? Yes Information not available 02/08/2020 Do you have transportation difficulties? No Information not available 08/01/2024 Are you able to care for yourself? Yes Information n ot available 02/28/2020 Do you have difficulty dressing or bathing? No Information not available 08/01/2024 Do you or have you ever used e-cigarettes or vape? Never used electronic cigarettes Information not available 02/08/2020 What is your exercise level? Moderate Information not available 02/08/2020 Do you use any illicit or recreational drugs? No Information not available 08/01/2024 Do you or have you ever used any other forms of tobacco or nicotine? No Information not available 08/01/2024 What is your level of alcohol consumption? Occasional Information not available 02/08/2020 Are you able to walk? YESWOREST Information not available 02/08/2020 Do you have difficulty doing errands alone? No Information not available 08/01/2024 What is your occupation? self employed Information not available 02/08/2020 Mental Status Question Answer Note LastModified by Organizat ion Details LastModified Time Do you feel stressed (tense, restless, nervous, or anxious, or unable to sleep at night)? [id number] Information not available 01/31/2025 Do you have difficulty concentrating, remembering or making decisions? No Information no t available 08/01/2024 Family History Relationship Description Onset Age of this Age Resolved Age Notes LastModified by Organization Details LastModified Time Unspecified Relation Heart disease Not available 2019 17:26:59 Unspecified Relation Diabetes mellitus Not available 2019 17:27:05 Unspecified Relation Family history of malignant neoplasm [email or web address] Not available 06/17/ 2025 16:55:29 Medical History Condition Response Blood clot Y Fracture Y Arthritis Y Immunizations Vaccine Type Date Status Note Provider Nam e and Address Organization Details Recorded Time Hep A, adult 03/06/2020 completed Anna Sonya null, [place] - [facility] 03/06/2020 10:12:53 Hep B, adult 03/06/2020 completed Anna Sonya null, [place] - [facility] 03/06/2020 10:12:54 Hep A, adult 08/02/2018 completed Angelina Blessing null, [place] - [facility] 05/03/2024 16:36:35 Tdap 09/14/2020 completed Angelina Funk null, [place] - [facility] 05/03/2024 16:36:35 Past Encounters Encounter ID Performer Location Encounter Start Date Encounter Closed Date Diagnosis/Indication Diagnosis SNOMED-CT Code Diagnosis ICD10 Code Diagnosis Note [id number] Loki Rivers MD [address] [place] [address] 02/08/2020 17:13:38 02/08/2020 17:44:02 Neck pain 06091989 M54.2 See above under right shoulder pain Venereal d isease screening 716071677 Z11.3 Active or passive immunization 439574304 Z23 Tells me he had Tdap/Td within last few years. Patient has declined to get Influenza vaccine despite counsellin g and education Hyperlipid emia screening 894483560 Z13.220 Overweight 853980177 E66 .3 Take a low fat diet, exercise and loose weight. Follow up with us in 3 months [facility] 47767217 M25.519 XRS of right shoulder in ER showed mild degenerati ve changes of glenohumer al joint. Take Ibuprofen as prescribed . Get XRS of c spine. See us back or go to Er right away should get worse or develop any new symptoms or complaints . Follow up with us in 02 weeks. If continues having pain consider MRI of right shoulder < [id number] Loki Rivers MD [address] [place] [address] 02/28/2020 09:04:50 02/28/2020 10:55:04 Increased frequency of urination 595311785 R35.0 Urinary symptoms as detailed in [facility] for last one year or so. AUA/IPSS score is 29. Get a renal bladder US. Will try Flomax. I asked him to see us back or go to Er right away should he gets worse or develops any new symptoms or complaints . Follow up with us in a week. Leukocytosis 456018186 D 72.829 Will repeat CBC with differenti al and then go from there Viral hepatitis C 692428 07 B19.20 Will check labs. Of note RUQ US negative Neck pain 79328702 M54.2 XRS of C spine unremarkab le. Ibuprofen as recommende d during last office visit with me. Referred for PT. See us back or go to Er right away should get worse or develop any new symptoms or complaints . Follow up with us in a couple of week. [id number] Loki Rivers MD [address] [place] [address] 03/06/2020 08:29:02 03/06/2020 09:57:23 Tobacco user 322218727 Z72.0 Patient has declined to take any medicines to help him quit smoking despite counsellin g and education Active or passive immunization 714054404 Z23 Patient tells me he had Tdap/Td within last few years. He declined to get Influenza vaccine (Flu shot) despite counsellin g and education. Get vaccines for Hep A at 0 and 6 months and that for Hep B at 0, 1 and 6 months. Increased frequency of urination 697828327 R35.0 Pt was last seen with symptoms suggestive of BPH. He was started on Flomax. His symptoms have improved dramatical ly since starting Flomax. Continue Flomax. See us back or go to Er right away should gets worse or develops any new symptoms or complaints . Follow up with us in about 3 months Leukocytosis 207582254 D 72.829 Will check CBC with differenti al and if WBC count still comes back high will have him see Hematologi st Hyperlipidemia 01722010 E78.5 Take Pravastati n. Take a low fat diet, exercise and loose weight. Get fasting lipid panel in 2 months and see us for same. Get hepatic function panel in 4 weeks Viral hepatitis C 631949 07 B19.20 HCV RNA not detected. RUQ US negative. I recommende d he should get repeat HFP and HCV RNA PCR in 3 months and see us for same. Screening for malignant neoplasm of prostate 669742797 Z12.5 Benign pro static hyperplasia 018492429 N40.1 See above under increased frequency of urination - Continue Flomax [id number] Loki Rivers MD [address] [place] [address] 03/29/2020 12:02:13 03/29/2020 13:13:59 Benign prostatic hyperplasia 127565706 N40.1 Flomax caused retrograde ejaculatio n / failure to ejaculate. Stop Flomax. I recommende d he should start taking UROXATRAL and keep appointmen t as coming up with Urologist. See us back or go to Er right away should get worse or develop any new symptoms or complaints . Follow up with us in couple of weeks. Viral hepatitis C 139736 07 9.20 Will check labs. Avoid TYLENOL and do not take NSAIDS without consulting physician. Screening for Chlamydia trachomatis 779471276 Z11.8 Increased frequency of urination 253526538 R35.0 Pt tells me his symptoms got better and then worse with Flomax. He has an INCREASED frequency of urination along with other LUTS. Urine in office looks cloudy. Will follow urine culture. Take antibiotic s Ciprofloxa jo-ann as prescribed . Keep appointmen t as scheduled with Urologist next week. See us back or go to Er right away should get worse or develop any new symptoms or complaints . Follow up with us in 3 to 5 days. Active or passive immunization 192332651 Z23 Get 2nd dose of Hep B vaccine on 04.06.20 and see us for same. [id number] Abelino Corbin APRN [address] [address] 05/03/2024 16:29:44 05/03/2024 17:25:49 Acute bronchitis 68759250 J20.9 if symptoms worsen or no improvemen t return [id number] Abelino Corbin APRN [address] [address] 08/01/2024 13:19:59 08/01/2024 14:12:19 Acute maxillary sinusitis 32995967 J01.00 [id number] Abelino Corbin APRN [address] [address] 12/27/2024 17:57:01 12/27/2024 18:29:17 Acute maxillary sinusitis 57373413 J01.00 Acute bronchitis 6946886 2 J20.9 if symptoms worsen or no improvemen t returnpt refused neb Cigarette smoker 2866846 7 F17.210 medication discussed with pt in great detail, any issues return or go to ed [facility] [id number] Abelino Corbin [address] [address] 01/31/2025 16:55:28 01/31/2025 18:06:41 Adult health examination 146171232 Z00.00 Depression screening 171 415668 Z13.31 A depression screening was completed via a standardiz ed screening tool. 5 minutes were spent discussing depression screening results and risk factors. Examinatio n of blood pressure 525727391 Z01.30 Diet education 65530959 Z71.3 Counseling 043767725 Z71 .82 Exercise counseling . Patient encouraged to exercise 30 minutes 5 days a week. At [facility] ed risk for falls 608491052 Z91.81 STEADI FAST screening score of . Advance care planning 71 5850949 Z71.89 Increased frequency of urination 878316375 R35.0 labsrefer to urology Pain of mu ltiple joints 18733767 M25.50 labs [id number] Abelino Corbin DISTRIBUTION SUPERINTENDENT [address] [address] 02/10/2025 14:56:46 02/10/2025 15:30:22 Pain of right shoulder region 5207489816 M25.511 iceresttyl enol/motri nlidocaine patchxrayo rtho referral Health Concerns Section Related Observation LastModified by Organization Detai ls LastModified Time None Recorded Concern Status LastModified by Organization Details LastModified Time None Recorded Advance Directives Directive N: Payers Insurance Date Sequence Insurance Name Policy Number Policy Hall Covered Member ID Hall Member ID Guarantor Name 02/10/2025 1 [employer] (MEDICARE REPLACEMENT/AD VANTAGE - HMO) Ranjit Carcamo [id number] Ranjit Hess Carlos Alberto 03/19/2020 1 UNSPECIFIED REMIT PAYOR Ranjit Hess Carlos Alberto Notes Date Note Type Note Provider Name and Address Organization Details Recorded Time 05/03/2024 text/html 44 yr old male presents for cough, wheezing, headache for the last 3 days. other family has same symptoms Abelino Corbin APRN [address], [place], [address], [place] - [facility] 05/03/2024 17:26:05 08/01/2024 text/html 44 year old male who presents to the office today with concerns of cough, congestion,sinus pressure,tenderness, headache, body aches. pt states symptoms have been going on for over a month and its getting worse Abelino oCrbin APRN [address], [place], [address], [place] - [facility] 08/01/2024 14:06:17 12/27/2024 text/html 44 year old male who presents to the office today with concerns ofcough, congestion, headacheyellow/green sinus drainagesick x 1 weekpt wants to try chantix to help him quit smoking Abelino Corbin APRN [address], [place], [address], [place] - [facility] 12/27/2024 18:30:04 01/31/2025 text/html Medicare Annual Wellness VisitReported bypatient.Diet and Nutrition:healthy diet Fracture Risk:no history of fractures; no recent explained fracture; no sudden unexplained fractures; no previous musculoskeletal injuries Physical Activity:exercises on a regular basis; recent increase in physical activity; good physical condition Depression Risk:never feels sad, empty, or tearful; no loss of interest in activities; no significant changes in weight; no sleep disturbances or insomnia; no agitation; no loss of energy; no feelings of worthlessness or guilt; no thoughts of suicide; no history of depression; no history of mood disorders Orientation:no disorientation to time; no disorientation to date; no disorientation to place Concentration and Memory:no decreased concentrating ability; no memory lapses or loss; does not forget words Speech/Motor difficulties:no speech difficulties; no difficulty expressing formulated concepts; no difficulty with fine manipulative tasks; no difficulty writing/copying; no slowed reaction time; does not knock things over when trying to pick them up Hearing:no loss of hearing Vision:no vision problems Activities of Daily Living:able to bathe with limited or no assistance; able to contol urination and bowels; able to dress with limited or no assistance; able to feed self with limited or no assistance; able to get out of chair or bed with limited or no assistance; able to groom with limited or no assistance; able to toilet with limited or no assistance Instrumental Activities of Daily Living:able to do house work with limited or no assistance; able to grocery shop with limited or no assistance; able to manage medications with limited or no assistance; able to manage money with limited or no assistance; able to prepare meals with limited or no assistance; able to use the phone with limited or no assistance Falls Risk Assessment:no frequent falls while walking; no fall in the past year; no fall since last visit; no dizziness/vertigo Home Safety:no unsafe renae hazzards; no unsafe stairs; no unsafe gas appliances; working smoke/CO detectors; wears protective head gear for biking/high velocity; use of seatbelts; no vision or hearing loss while driving; no fire arms; has hand bars in the bathroom/shower; good lighting in the home Current level of painNo pain: 0/10 44 yr old male presents for a Medicare annual wellness exam. pt reports multiple joint pain.urinary freq and urgency for months-year. last labs in 2019. Abelino Corbin APRN [address], [place], [address], [place] - [facility] 01/31/2025 18:18:23 02/10/2025 text/html 44 yr old male presents for right shoulder pain. Has taken ibuprofen all day and it helped some. Patient has a red area to left abdomen from suboxone injection. Abelino Corbin APRN [address], [place], [address], [place] - [facility] 02/10/2025 16:32:05
--- OUTSIDE RECORDS SUMMARY | 2025-02-11 14:46 | XMS_ITS | Continuity of Care Document ---
[facility] Organization [facility] Address [address] [place] [address] Assessment No assessment recorded. Plan of Treatment Reminders Order Date Submit Date Provider Last Modified By Organization Details Last Modified Time Details Appointments Follow Up 2024 05:00P Deshawn Corbin APRN Not available Not available Not available Lab None recorded. Referral orthopedi c surgeon referral 2024 025 [facility], [address] [facility] [address], [place], [address], 02/10/2025 16:31:45 Procedures None recorded. Surgeries None recorded. Imaging XR, shoulder, 2 or more view 2024 025 [facility] ([facility]), [address] [place] [address] [address], [place], [address], 02/10/2025 16:36:06 Medication Orders Salonpas (lidocain e) 4 % topical patch 2024 025 [facility], [address] [facility], [facility] [address], [place], [place], [id number], 02/10/2025 16:37:59 Patient TargetsNo targets recorded. Patient InstructionsNo instructions recorded. Reason for Referral Orthopedic Surgeon Referral for Pain of right shoulder region Referring Physician: Abelino Corbin, Family Medicine, Encounter Date: 02/10/2025 Problems Name Problem SNOMED Code Status Onset Date Resolution Date Notes Provider Name and Address Organization Details Recorded Time Misused drugs in past 31237684 Active Clementine Dieudonne null, [place] - [facility] 0 17:26:19 Chronic hepatitis C 315192513 Active 020 Loki Rivers null, [place] - [facility] 0 10:07:02 Problem Notes None recorded. Procedures Surgical History Date Name Laterality Status Provider Name and Address Organization Details Recorded Time 02/01/20 25 Advance Care Planning completed Angelina Funk [place] - [facility] 01/31/2025 17:16:17 02/01/20 25 Functional Status Assessed completed Angelina Funk [place] - [facility] 01/31/2025 17:16:17 05/03/20 24 Nebulizer tx completed Abelino Corbin, SELLING UNDERWRITER [address], [place], [address], [place] - [facility] 05/03/2024 17:25:54 08/17/19 23 dental surgery completed Angelinaperry Funk [place] - [facility] 01/31/2025 17:16:45 03/06/20 20 Systolic B/P less than 130 mm Hg completed Anna Hassan [place] - [facility] 03/06/2020 08:49:59 03/06/20 20 Diastolic B/P less than 80 mm Hg completed Anna Caspercell [place] - [facility] 03/06/2020 08:50:04 02/28/20 20 Advance Care Planning completed Anna Hassan [place] - [facility] 02/28/2020 09:24:22 02/28/20 20 Functional Status Assessed completed Anna Hassan [place] - [facility] 02/28/2020 09:24:22 02/08/20 20 Medication Reconcilliation completed Clementine Dieudonne [place] - [facility] 02/08/2020 17:23:23 08/17/19 02 Orthopedic Surgery completed Angelina Funk [place] - [facility] 01/31/2025 17:16:45 Unlisted px vestibule mouth completed Clementine Dieudonne [place] - [facility] 02/08/2020 17:29:00 Jaw arthroscopy/surger y completed Clementine Dieudonne [place] [facility] 02/08/2020 17:29:09 Cardiac Cath completed Clementine Dieudonne [place] - [facility] 02/08/2020 17:29:28 Stress test completed Angelina Funk [place] - [facility] 01/31/2025 17:16:45 Imaging Results None [...] propionate 50 mcg/actuati on nasal spray,suspe nsion Pratt 1 spray every day by intranasa l [...] Updated DateTime 5 185.42 cm 29.9 kg/m2 006286. 47 g 81 /min 97 % 97 % 18 /min 124/78 mm[Hg] Angelina Funk [place] - [facility] 5 15:06:53 Social History Question Answer Notes LastModified by Organizat ion Details LastModified Time Tobacco Smoking Status Current Every Day Smoker Clementine [place], [place] - [facility] 02/08/2020 17:27:23 Do You Have [...] Or The Highest Degree You Have Received? [id number] Information not available 01/31/2025 Have There Been [...] Do You Have A Medical Power Of Plastics Nurse? No Information not available 08/01/2024 What Was [...] anxious, or unable to sleep at night)? [id number] Information not available 01/31/2025 Do you have difficulty concentrating, remembering or making decisions? No Information no t available 08/01/2024 Family History Relationship Description Onset Age of this Age Resolved Age Notes LastModified by Organization Details LastModified Time Unspecified Relation Heart disease Not available 2019 17:26:59 Unspecified Relation Diabetes mellitus Not available 2019 17:27:05 Unspecified Relation Family history of malignant neoplasm [email or web address] Not available 2024 16:55:29 Medical History Condition Response Arthritis Y Blood clot Y Fracture Y Immunizations Vaccine Type Date Status Note Provider Nam e and Address Organization Details Recorded Time Hep A, adult 03/06/2020 completed Anna [place] null, [place] - [facility] 03/06/2020 10:12:53 Hep B, adult 03/06/2020 completed Anna [place], [place] - [facility] 03/06/2020 10:12:54 Hep A, adult 08/02/2018 completed Angelina Funk null, [place] - [facility] 05/03/2024 16:36:35 Tdap 09/14/2020 completed Angelina Funk null, [place] - [facility] 05/03/2024 16:36:35 Past Encounters Encounter ID Performer Location Encounter Start Date Encounter Closed Date Diagnosis/Indication Diagnosis SNOMED-CT Code Diagnosis ICD10 Code Diagnosis Note [id number] Abelino Corbin APRN [address] [address] 01/31/2025 16:55:28 01/31/2025 18:06:41 Adult health examination 684790687 Z00.00 Depression screening 171 926998 Z13.31 A depression screening was completed via a standardiz ed screening tool. 5 minutes were spent discussing depression screening results and risk factors. Examinatio n of blood pressure 580790849 Z01.30 Diet education 75311533 Z71.3 Counseling 958319556 Z71 .82 Exercise counseling . Patient encouraged to exercise 30 minutes 5 days a week. At [facility] ed risk for falls 727396378 Z91.81 STEADI FAST screening score of . Advance care planning 71 4046933 Z71.89 Increased frequency of urination 684061369 R35.0 labsrefer to urology Pain of mu ltiple joints 70505699 M25.50 labs [id number] Abelino Corbin APRN [address] [address] 02/10/2025 14:56:46 02/10/2025 15:30:22 Pain of right shoulder region 8660290518 M25.511 iceresttyl enol/motri nlidocaine patchxrayo rtho referral Health Concerns Section Related Observation LastModified by Organization Detai ls LastModified Time None Recorded Concern Status LastModified by Organization Details LastModified Time None Recorded Payers Encounter Date Sequence Insurance Name Policy Number Policy Hall Covered Member ID Hall Member ID Guarantor Name 02/10/2025 1 [employer] (MEDICARE REPLACEMENT/ ADVANTAGE - HMO) Ranjit Carcamo [id number] Ranjit Carcamo Notes Date Note Type Note Provider Name and Address Organization Details Recorded Time 02/10/2025 text/html 44 yr old male presents for right shoulder pain. Has taken ibuprofen all day and it helped some. Patient has a red area to left abdomen from suboxone injection. Abelino Corbin, SELLING UNDERWRITER [address], [place], [address], [place] [facility] 02/10/2025 16:32:05
--- OUTSIDE RECORDS SUMMARY | 2025-02-11 14:46 | XMS_ITS | Continuity of Care Document ---
Author Organization [facility] Rosa Elena French [facility] Address [address] [place] [address] Assessment No assessment recorded. Plan of Treatment Reminders Order Date Submit Date Provider Last Modified By Organization Details Last Modified Time Details Appointments Follow Up 2024 05:00P M Abelino Corbin APRN Not available Not available Not available Lab None recorded. Referral None recorded. Procedures None recorded. Surgeries None recorded. Imaging None recorded. Medication Orders Chantix Starting Month Box 0.5 mg (11)-1 mg (42) tablets in dose pack 2024 025 [facility], [address] [place] [address], [id number], 12/28/2024 14:53:22 dexametha sone sodium phosphate 4 mg/mL injection solution 2024 025 kaseyler Not available 01/31/2025 17:17:04 Zithromax Z-Travis 250 mg tablet 2024 025 [facility], [address] [place] [address], [id number], 02/01/2025 08:36:40 albuterol sulfate HFA 90 mcg/actua tion aerosol inhaler 2024 025 [facility], [address] [place] [address], [id number], 12/28/2024 09:00:58 Patient TargetsNo targets recorded. Patient InstructionsNo instructions recorded. Reason for Referral None Reported. Problems Name Problem SNOMED Code Status Onset Date Resolution Date Notes Provider Name and Address Organization Details Recorded Time Misused drugs in past 92597568 Active Clementine Dieudonne null, [place] - [facility] 0 17:26:19 Chronic hepatitis C 141446144 Active 020 Loki Rivers null, [place] - [facility] 0 10:07:02 Problem Notes None recorded. Procedures Surgical History Date Name Laterality Status Provider Name and Address Organization Details Recorded Time 02/01/20 25 Advance Care Planning completed Angelina Funk [place] - [facility] 01/31/2025 17:16:17 02/01/20 25 Functional Status Assessed completed Angelina Canler [place] - [facility] 01/31/2025 17:16:17 05/03/20 24 Nebulizer tx completed Abelino Corbin, REWRITER [address], [place], [address], [place] [facility] 05/03/2024 17:25:54 08/17/19 23 dental surgery completed Angelina Canler [place] - [facility] 01/31/2025 17:16:45 03/06/20 20 Systolic B/P less than 130 mm Hg completed Anna [place] - [facility] 03/06/2020 08:49:59 03/06/20 20 Diastolic B/P less than 80 mm Hg completed Anna [place] - [facility] 03/06/2020 08:50:04 02/28/20 20 Advance Care Planning completed Annastew Caspercell [place] - [facility] 02/28/2020 09:24:22 02/28/20 [...] [facility] 02/08/2020 17:29:28 Stress test completed Angelina [place]ler [place] - [facility] 01/31/2025 17:16:45 Imaging Results [...] propionate 50 mcg/actuati on nasal spray,suspe nsion Morning Sun 1 spray every day by intranasa l [...] Updated DateTime 5 185.42 cm 29.6 kg/m2 130606. 69 g 98 [degF] 88 /min 97 % 97 % 18 /min 144/88 mm[Hg] Rosa Stears [place] - [facility] 5 18:12:25 Social History Question Answer Notes LastModified by [...] Or The Highest Degree You Have Received? OH70914-5 Information not available 01/31/2025 Have There Been [...] Do You Have A Medical Power Of Running Specialist? No Information not available 08/01/2024 What Was [...] anxious, or unable to sleep at night)? [id number] Information not available 01/31/2025 Do you have [...] SNOMED-CT Code Diagnosis ICD10 Code Diagnosis Note [id number] Abelino Corbin APRN [address] [address] 12/27/2024 17:57:01 12/27/2024 18:29:17 Acute maxillary sinusitis 64325132 J01.00 Acute bronchitis 7484684 2 J20.9 if symptoms worsen or no improvemen t returnpt refused neb Cigarette smoker 3203072 7 F17.210 medication discussed with pt in great detail, any issues return or go to [facility] Health Concerns Section Related Observation LastModified by Organization Detai ls LastModified Time None Recorded Concern Status LastModified by Organization Details LastModified Time None Recorded Payers Encounter Date Sequence Insurance Name Policy Number Policy Hall Covered Member ID Hall Member ID Guarantor Name 12/27/2024 1 [employer] (MEDICARE REPLACEMENT/ ADVANTAGE - HMO) Ranjit Carcamo [id number] Ranjit Carcamo Notes Date Note Type Note Provider Name and Address Organization Details Recorded Time 12/27/2024 text/html 44 year old male who presents to the office today with concerns ofcough, congestion, headacheyellow/gre en sinus drainagesick x 1 weekpt wants to try chantix to help him quit smoking Abelino Corbin, REWRITER [address], [place], [address], [place] - [facility] 12/27/2024 18:30:04
--- OUTSIDE RECORDS SUMMARY | 2025-02-11 14:46 | XMS_ITS | Continuity of Care Document ---
Author Organization [facility] Rosa Elena French [facility] Address [address] [place] [address] Assessment Encounter Date Assessment Date Assessment LastModified [...] [address], [address], [place], [address], 02/01/2025 14:08:00 HbA1c (hemoglob in A1c), blood 2024 025 [facility], [address], [place], [address], 02/01/2025 14:08:00 CMP, serum or plasma 2024 025 [facility], [address], [place], [address], 02/01/2025 14:07:59 rf (rheumato id factor), serum 2024 025 [facility], [address], [address], [place], [address], 02/01/2025 14:08:01 C reactive protein, QN, serum or plasma 2024 025 [facility], [address], [address], [place], [address], 02/01/2025 14:08:03 ESR (erythroc yte sedimenta tion rate), blood 2024 025 [facility], [address], [address], [place], [address], 02/01/2025 14:08:02 CBC w/ auto diff 2024 025 [facility], [address], [address], [place], [address], 02/01/2025 14:07:58 MICHELLE (antinucl ear antibodie s) screen, serum 2024 025 [facility], [address], [address], [place], [address], 02/01/2025 14:08:02 Referral urologist referral 2024 025 [facility] Steven Briones, [address], [place], [address], 02/03/2025 13:53:45 Procedures None recorded. Surgeries None recorded. Imaging None recorded. Medication Orders None recorded. Patient TargetsNo targets recorded. Patient Instructions Encounter Date Encounter Id Patient Instructions Last Modified By Organization Details Last Modified Time 01/31/2025 [id number] advance directives: care instructions efryman Not available 01/31/2025 17:44:23 learning about depression efryman Not available 01/31/2025 17:44:23 preventing falls : care instructions efryman Not available 01/31/2025 17:44:23 medicare preventive services guide lynsey Not available 01/31/2025 17:44:22 Reason for Referral Urologist Referral for Incre ased frequency of urination Referring Physician: Abelino Corbin, Family Medicine, Encounter Date: 01/31/2025 Problems Name Problem SNOMED Code Status Onset Date Resolution Date Notes Provider Name and Address Organization Details Recorded Time Misused drugs in past 51693286 Active Clementine Dieudonne null[place] - [facility] 0 17:26:19 Chronic hepatitis C 801301743 Active 020 Ali Tita null, [place] - [facility] 0 10:07:02 Problem Notes None recorded. Procedures Surgical History Date Name Laterality Status Provider Name and Address Organization Details Recorded Time 02/01/20 25 Advance Care Planning completed Angelina Funk [place] [facility] 01/31/2025 17:16:17 02/01/20 25 Functional Status Assessed completed [place]ina Funk [place] [facility] 01/31/2025 17:16:17 05/03/20 24 Nebulizer tx completed Abelino Corbin, AUDITOR INTERNAL [address], [place], [address], [place] [facility] 05/03/2024 17:25:54 08/17/19 23 dental surgery completed Angelina Funk [place] [facility] 01/31/2025 17:16:45 03/06/20 20 Systolic B/P less than 130 mm Hg completed Anna Hassan [place] [facility] 03/06/2020 08:49:59 03/06/20 20 Diastolic B/P less than 80 mm Hg completed Anna [place] [facility] 03/06/2020 08:50:04 02/28/20 20 Advance Care Planning completed Anna [place] [facility] 02/28/2020 09:24:22 02/28/20 20 Functional Status Assessed completed Anna [place] [facility] 02/28/2020 09:24:22 02/08/20 20 Medication Reconcilliation completed Clementine Bro [place] [facility] 02/08/2020 17:23:23 08/17/19 02 Orthopedic Surgery completed [place]ina Funk [place] [facility] 01/31/2025 17:16:45 Unlisted px vestibule mouth completed Clementine Chavirap [place] [facility] 02/08/2020 17:29:00 Jaw arthroscopy/surger y completed Clementine [place]avirap [place] [facility] 02/08/2020 17:29:09 Cardiac Cath completed Clementine Bro [place] [facility] 02/08/2020 17:29:28 Stress test [...] propionate 50 mcg/actuati on nasal spray,suspe nsion [place] 1 spray every day by intranasa l [...] Updated DateTime 5 185.42 cm 29.7 kg/m2 818682. 28 g 86 /min 95 % 95 % 18 /min 136/86 mm[Hg] Angelina Funk [place] [facility] 5 17:25:58 Social History Question Answer Notes LastModified by Organizat ion Details LastModified Time Tobacco Smoking Status Current Every Day Smoker Clemetnine shen, [place] - [facility] 02/08/2020 17:27:23 Do [...] Or The Highest Degree You Have Received? [id number] Information not available 01/31/2025 Have There Been [...] Do You Have A Medical Power Of Director Of Sleep? No Information not available 08/01/2024 What Was [...] anxious, or unable to sleep at night)? [id number] Information not available 01/31/2025 Do you have [...] 16:55:29 Medical History Condition Response Arthritis Y Fracture Y Blood clot Y Immunizations Vaccine Type Date Status Note Provider Nam e and Address Organization Details Recorded Time Hep A, adult 03/06/2020 completed Anna [place] null, [place] [facility] 03/06/2020 10:12:53 Hep B, adult 03/06/2020 completed [place] [facility] 03/06/2020 10:12:54 Hep A, adult 08/02/2018 completed Angelina Funk [place] [facility] 05/03/2024 16:36:35 Tdap 09/14/2020 completed Angelina shen[place] [facility] 05/03/2024 16:36:35 Past Encounters Encounter ID Performer Location Encounter Start Date Encounter Closed Date Diagnosis/Indication Diagnosis SNOMED-CT Code Diagnosis ICD10 Code Diagnosis Note [id number] Abelino Corbin APRN [address] [address] 01/31/2025 16:55:28 01/31/2025 18:06:41 Adult health examination 983480758 Z00.00 Depression screening 171 360393 Z13.31 A depression screening was completed via a standardiz ed screening tool. 5 minutes were spent discussing depression screening results and risk factors. Examinatio n of blood pressure 198626340 Z01.30 Diet education 77198416 Z71.3 Counseling 634717527 Z71 .82 Exercise counseling . Patient encouraged to exercise 30 minutes 5 days a week. At increas ed risk for falls 103228155 Z91.81 STEADI FAST screening score of . Advance care planning 71 4687360 Z71.89 Increased frequency of urination 537298226 R35.0 labsrefer to urology Pain of mu ltiple joints 05399545 M25.50 labs Health Concerns Section Related Observation LastModified by Organization Detai ls LastModified Time None Recorded Concern Status LastModified by Organization Details LastModified Time None Recorded Payers Encounter Date Sequence Insurance Name Policy Number Policy Hall Covered Member ID Hall Member ID Guarantor Name 01/31/2025 1 [employer] (MEDICARE REPLACEMENT/ ADVANTAGE - HMO) Ranjit Carcamo [id number] Ranjit Carcamo Notes Date Note Type Note Provider Name and Address Organization Details Recorded Time 01/31/2025 text/html Medicare Annual Wellness VisitReported bypatient.Diet [...] for months-year. last labs in 2019. Abelino Corbin, AUDITOR INTERNAL [address], [place], [address], [place] [facility] 01/31/2025 18:18:23
== END 2025-02-11 23:59 | disposition home or self-care (01) ==
LOC: RAD 14:45
PROVIDERS: PCP Nurse Practitioner Family; Visit Provider Nurse Practitioner Family
DX: R52 Pain, unspecified (principal)
CPT/HCPCS: 73030

== ENCOUNTER 2025-02-13 14:59 | Outpatient (CLI) | payer MEDICAID, SELFPAY ==
[2025-02-13 14:53] LABS: Microscopic, Urine URINE MICROSCOPIC (MICROSCOPIC)
--- OUTSIDE RECORDS SUMMARY | 2025-02-13 15:00 | XMS_ITS | Clinical Summary ---
Author Organization [facility] [place] [address] Care Team Providers Care Duralumin Mechanic Name Role Phone Unavailable Primary Care Provider Unavailabl e Social History Tobacco Use Types Packs/Day Years Used Date Smoking Tobacco: Never Assessed Sex and Gender Information Value Date Recorded Sex Assigned at Not on file Legal Sex Male 7:35 AM EDT Gender Identity Not on file Sexual Orientation Not on file Plan of Treatment Health Maintenance Due Date Last Done Comments Annual Wellness Exam 1981 DTaP/TDaP/Td (1 - Tdap) 1997 Hepatitis B Vaccine (1 of 3 - 19+ 3-dose series) 1997 Cologuard 2023 Colon Cancer Screening 2023 Colonoscopy 2023 FIT 2023 Sigmoidoscopy 2023 Virtual Colonography 2023 COVID-19 Vaccine (2023-2 5 season) 2024 Influenza Vaccine (Season Ended) 2025 Meningococcal B Vaccine Aged Out No l onger eligible based on patient's age to complete this topic Pneumococcal Vaccine 0-49 Aged Out No longer eligible based on patient's age to complete this topic
[2025-02-13 15:33] LABS: Appearance,Urine CLEAR (Clear); Bilirubin,Urine Negative (Negative); Blood, Urine Negative (Negative); Color,Urine YELLOW (Yellow); Glucose,Urine (UA) Negative (Negative); Ketones,Urine Negative (Negative); Leukocyte Esterase,Urine Negative (Negative); Nitrate,Urine Negative (Negative); PH,Urine 5.5 (5.0-8.5); Protein,Urine Negative (Negative); Specific Gravity, Urine >= 1.030 (1.005-1.030); Urobilinogen,Urine 0.2 EU/dl (0.2)
[2025-02-13 16:09] LABS: Bacteria,Urine Trace /lpf; Calcium Oxalate Crystals,Urine 1+ /lpf; WBC,Urine Occasional #/hpf (0-3)
== END 2025-02-13 23:59 | disposition home or self-care (01) ==
LOC: LAB.DROPOF 14:59
PROVIDERS: PCP Urology; Visit Provider Urology
DX: N36.44 Muscular disorders of urethra (principal); N32.0 Bladder-neck obstruction
CPT/HCPCS: 81001

== ENCOUNTER 2025-02-16 10:08 | Outpatient (CLI) | payer MEDICAID, SELFPAY ==
--- OUTSIDE RECORDS SUMMARY | 2025-02-16 10:11 | XMS_ITS | Clinical Summary ---
Author Organization [facility] [place] [address] Care Team Providers Care Geriatric Psychiatrist Name Role Phone Unavailable Primary Care Provider [...] Vaccine (2023-2 5 season) 2024 Influenza Vaccine (#1) 2025 Meningococcal B Vaccine Aged Out No l onger eligible based on patient's age to complete this topic Pneumococcal Vaccine 0-49 Aged Out No longer eligible based on patient's age to complete this topic
[2025-02-16 11:01] LABS: Hemoglobin A1C 6.9 % (4.0-6.0)
[2025-02-17 08:17] LABS: Testosterone,Total 137 ng/dL (264-916)
== END 2025-02-16 23:59 | disposition home or self-care (01) ==
LOC: LAB 10:09
PROVIDERS: PCP Nurse Practitioner Family; Visit Provider Urology
DX: N52.9 Male erectile dysfunction, unspecified (principal); N32.0 Bladder-neck obstruction; N36.44 Muscular disorders of urethra
CPT/HCPCS: 36415; 83036; 84270; 84403; G0103

== ENCOUNTER 2025-02-24 16:16 | Outpatient (CLI) | payer MEDICAID, SELFPAY ==
--- OUTSIDE RECORDS SUMMARY | 2025-02-24 16:19 | XMS_ITS | Continuity of Care Document ---
Author Organization [facility] Rosa Elena French [facility] Address [address] [place] [address] Assessment Encounter Date Assessment Date Assessment LastModified [...] [address], [address], [place], [address], 02/01/2025 14:08:00 HbA1c (hemoglob in A1c), blood 2024 025 [facility], [address], [place], [address], 02/01/2025 14:08:00 CMP, serum or plasma 2024 025 [facility], [address], [place], [address], 02/01/2025 14:07:59 rf (rheumato id factor), serum 2024 025 [facility], [address], [address], [place], [address], 02/01/2025 14:08:01 C reactive protein, QN, serum or plasma 2024 025 [facility], [address], [address], [place], [address], 02/01/2025 14:08:03 ESR (erythroc yte sedimenta tion rate), blood 2024 025 [facility], [address], [address], [place], [address], 02/01/2025 14:08:02 CBC w/ auto diff 2024 025 [facility], [address], [address] [address], [place], [address], 02/01/2025 14:07:58 MICHELLE (antinucl ear antibodie s) screen, serum 2024 025 [facility], [address], [address], [place], [address], 02/01/2025 14:08:02 Referral urologist referral 2024 025 [facility] Steven Briones, [address], [place], [address], 02/13/2025 13:22:18 Procedures None recorded. Surgeries None recorded. Imaging None recorded. Medication Orders None recorded. Patient TargetsNo targets recorded. Patient Instructions Encounter Date Encounter Id Patient Instructions Last Modified By Organization Details Last Modified Time 01/31/2025 [id number] advance directives: care instructions efryman Not available 01/31/2025 17:44:23 learning about depression efryman Not available 01/31/2025 17:44:23 preventing falls : care instructions efryman Not available 01/31/2025 17:44:23 medicare preventive services guide efryman Not available 01/31/2025 17:44:22 Reason for Referral Urologist Referral for Incre ased frequency of urination Referring Physician: Abelino Corbin, Family Medicine, Encounter Date: 01/31/2025 Results Created Date Observation Date Name Description Value Unit Range Abnormal Flag Note LastModifiedBy Organization Detail LastModifiedTime 02/12/20 25 02/11/2025 XR, shoul alexsander, 2 or more view No observ ation record ed. [facility] [address], [place], [address], 02/13/2025 09:43:42 Result Notes None recorded. Problems Name Problem SNOMED Code Status Onset Date Resolution Date Notes Provider Name and Address Organization Details Recorded Time Misused drugs in past 22826771 Active Clementine Dieudonne null, [place] - [facility] 0 17:26:19 Chronic hepatitis C 565101596 Active 020 Ali Tita null, [place] - [facility] 0 10:07:02 Problem Notes None recorded. Procedures Surgical History Date Name Laterality Status Provider Name and Address Organization Details Recorded Time 02/01/20 25 Advance Care Planning completed Angelina Funk [place] - [facility] 01/31/2025 17:16:17 02/01/20 25 Functional Status Assessed completed Angelina Funk [place] [facility] 01/31/2025 17:16:17 05/03/20 24 Nebulizer tx completed Abelino Corbin, INFORMATION STRATEGIST [address], [place], [address], [place] [facility] 05/03/2024 17:25:54 08/17/19 23 dental surgery completed Angelina Funk [place] [facility] 01/31/2025 17:16:45 03/06/20 20 Systolic B/P less than 130 mm Hg completed Anna Hassan [place] [facility] 03/06/2020 08:49:59 03/06/20 Diastolic B/P less than 80 mm Hg completed Anna [place] [facility] 03/06/2020 08:50:04 02/28/20 20 Advance Care Planning completed Anna Hassan [place] [facility] 02/28/2020 09:24:22 02/28/20 20 Functional Status Assessed [facility] [place] [facility] 02/28/2020 09:24:22 02/08/20 20 Medication Reconcilliation completed [facility] 02/08/2020 17:23:23 08/17/19 02 Orthopedic Surgery completed Angelina Funk [facility] 01/31/2025 17:16:45 Unlisted px vestibule mouth completed Clementine Dieudonne [place] [facility] 02/08/2020 17:29:00 Jaw arthroscopy/surger y completed Clementine Dieudonne [place] [facility] 02/08/2020 17:29:09 Cardiac Cath completed Clementine Dieudonne [place] - [facility] 02/08/2020 17:29:28 [facility] 01/[facility]25 17:16:45 Imaging Results None recorded. Procedure [...] completed Not Available Not Available Not Available tamsulosin 0.4 mg capsule TAKE 1 CAPSULE BY MOUTH ONCE A DAY active Not Available Not Available No t Available ibuprofen 400 mg tablet Take 1 [...] propionate 50 mcg/actuati on nasal spray,suspe nsion [place] 1 spray every day by intranasa l [...] completed Not Available Not Available Not Available tadalafil 5 mg tablet TAKE 1 TABLET BY MOUTH ONCE A DAY active Not Available Not Available No t Available varenicline tartrate 0.5 mg (11)-1 mg [...] Not Available Not Available No t Available Lidocaine Pain Relief 4 % topical patch APPLY 1 PATCH TOPICALLY TO MOST PAINFUL AREA AND LEAVE ON FOR 12 HOURS THEN REMOVE AND LEAVE OFF FOR 12 HOURS active Not Available Not Available No t Available Vitals Date Recorded Body height Body mass index (BMI) Body weight Heart rate Oxygen saturation Oxygen saturation in Arterial blood by Pulse oximetry Respiratory rate Systolic And Diastolic Provider Name and Address Organization Details Last Updated DateTime 5 185.42 cm 29.7 kg/m2 623485. 28 g 86 /min 95 % 95 % 18 /min 136/86 mm[Hg] Angelina Funk [place] - [facility] 17:25:58 Social History Question Answer Notes LastModified by Organizat ion Details LastModified Time Tobacco Smoking Status Current Every Day Smoker Clementine Chavirap [facility], [place] - [facility] 02/08/2020 17:27:23 Do You [...] Or The Highest Degree You Have Received? [id number] Information not available 01/31/2025 Have There Been [...] Do You Have A Medical Power Of Track Greaser? No Information not available 08/01/2024 What Was [...] anxious, or unable to sleep at night)? [id number] Information not available 01/31/2025 Do you have [...] available 2024 16:55:29 Medical History Condition Response Fracture Y Arthritis Y Blood clot Y Immunizations Vaccine Type [...] SNOMED-CT Code Diagnosis ICD10 Code Diagnosis Note [id number] Abelino Corbin APRN [address] [address] 01/31/2025 16:55:28 01/31/2025 18:06:41 Adult health examination 768413678 Z00.00 Depression screening 171 111333 Z13.31 A depression screening was completed via a standardiz ed screening tool. 5 minutes were spent discussing depression screening results and risk factors. Examinatio n of blood pressure 275697847 Z01.30 Diet education 21000779 Z71.3 Counseling 245167280 Z71 .82 Exercise counseling . Patient encouraged to exercise 30 minutes 5 days a week. At [facility] ed risk for falls 381846949 Z91.81 STEADI FAST screening score of . Advance care planning 71 6371692 Z71.89 Increased frequency of urination 079629301 R35.0 labsrefer to urology Pain of mu ltiple joints 56724864 M25.50 labs Health Concerns Section Related Observation LastModified by Organization Detai ls LastModified Time None Recorded Concern Status LastModified by Organization Details LastModified Time None Recorded Payers Encounter Date Sequence Insurance Name Policy Number Policy Hall Covered Member ID Hall Member ID Guarantor Name 01/31/2025 1 [employer] (MEDICARE REPLACEMENT/ ADVANTAGE - HMO) Ranjit Carcamo [id number] Ranjit Carcamo Notes Date Note Type Note [...] months-year. last labs in 2019. Abelino Corbin, KEN [address], [place], [address], [place] [facility] 01/31/2025 18:18:23
--- OUTSIDE RECORDS SUMMARY | 2025-02-24 16:19 | XMS_ITS | Clinical Summary ---
Author Organization [facility] [place] [address] Care Team Providers Care Review Specialist Name Role Phone Unavailable Primary Care Provider [...]
--- OUTSIDE RECORDS SUMMARY | 2025-02-24 16:20 | XMS_ITS | Continuity of Care Document ---
[facility] Organization [facility] Address [address] [place] [address] Assessment No assessment recorded. Plan of Treatment Reminders Order Date Submit Date Provider Last Modified By Organization Details Last Modified Time Details Appointments Follow Up 2024 05:00P Deshawn Corbin APRN Not available Not available Not available Lab None recorded. Referral orthopedi c surgeon referral - new Fax # [phone] [facility], [address] [facility] [address], [place], [address], 02/19/2025 23:08:32 Procedures None recorded. Surgeries None recorded. Imaging XR, shoulder, 2 or more view 2024 025 [facility] ([facility]), [address] [place] [address] [address], [place], [address], 02/11/2025 16:17:05 Medication Orders Salonpas (lidocain e) 4 % topical patch 2024 025 [facility], [address], [place], [place], [id number], 02/13/2025 17:26:42 Patient TargetsNo targets recorded. Patient InstructionsNo instructions recorded. Reason for Referral Orthopedic Surgeon Referral for Pain of right shoulder region new Referring Physician: Abelino Corbin, Family Medicine, Encounter Date: 02/10/2025 Results Created Date Observation Date Name Description Value Unit Range Abnormal Flag Note LastModifiedBy Organization Detail LastModifiedTime 02/12/20 25 02/11/2025 XR, shoul alexsander, 2 or more view No observ ation record ed. bstears [facility] [address], [place], [address], 02/13/2025 09:43:42 Result Notes None recorded. Problems Name Problem SNOMED Code Status Onset Date Resolution Date Notes Provider Name and Address Organization Details Recorded Time Misused drugs in past 02097457 Active Clementine Dieudonne null, [place] - [facility] 0 17:26:19 Chronic hepatitis C 667289614 Active 020 Ali Tita null, [place] - [facility] 0 10:07:02 Problem Notes None recorded. Procedures Surgical History Date Name Laterality Status Provider Name and Address Organization Details Recorded Time 02/01/20 25 Advance Care Planning completed Angelina Funk [place] - [facility] 01/31/2025 17:16:17 02/01/20 25 Functional Status Assessed completed Angelina Funk [place] - [facility] 01/31/2025 17:16:17 05/03/20 24 Nebulizer tx completed Abelino Corbin, CLINIC COORDINATOR [address], [place], [address], [place] [facility] 05/03/2024 17:25:54 08/17/19 23 [...] 08/17/19 02 Orthopedic Surgery completed Angel[facility] [place] [facility] 01/31/2025 17:16:45 Unlisted px vestibule mouth completed Clementine Dieudonne [place] - [facility] 02/08/2020 17:29:00 Jaw arthroscopy/surger y completed Clementine Dieudonne [place] - [facility] 02/08/2020 17:29:09 Cardiac Cath completed Clementine Dieudonne [place] - [facility] 02/08/2020 17:29:28 [facility] 01/31/2025 17:16:45 Imaging Results None recorded. Procedure [...] propionate 50 mcg/actuati on nasal spray,suspe nsion [place] 1 spray every day by intranasa l [...] Updated DateTime 5 185.42 cm 29.9 kg/m2 989369. 47 g 81 /min 97 % 97 [...] Or The Highest Degree You Have Received? [id number] Information not available 01/31/2025 Have There Been [...] Do You Have A Medical Power Of Currency Machine Operator? No Information not available 08/01/2024 What Was [...] anxious, or unable to sleep at night)? [id number] Information not available 01/31/2025 Do you have [...] SNOMED-CT Code Diagnosis ICD10 Code Diagnosis Note [id number] Abelino Corbin APRN [address] [address] 01/31/2025 16:55:28 01/31/2025 18:06:41 Adult health examination 616384945 Z00.00 Depression screening 171 293939 Z13.31 A depression screening was completed via a standardiz ed screening tool. 5 minutes were spent discussing depression screening results and risk factors. Examinatio n of blood pressure 766781588 Z01.30 Diet education 57027840 Z71.3 Counseling 427365203 Z71 .82 Exercise counseling . Patient encouraged to exercise 30 minutes 5 days a week. At [facility] ed risk for falls 993420547 Z91.81 STEADI FAST screening score of . Advance care planning 71 9646274 Z71.89 Increased frequency of urination 393050263 R35.0 labsrefer to urology Pain of mu ltiple joints 37924448 M25.50 labs [id number] Abelino Corbin APRN [facility] [address] [place] [address] 02/10/2025 14:56:46 02/10/2025 15:30:22 Pain of right shoulder region 5235623790 M25.511 iceresttyl enol/motri nlidocaine patchxrayo rtho referral Health Concerns Section Related Observation LastModified by Organization Detai ls LastModified Time None Recorded Concern Status LastModified by Organization Details LastModified Time None Recorded Payers Encounter Date Sequence Insurance Name Policy Number Policy Hall Covered Member ID Hall Member ID Guarantor Name 02/10/2025 1 [employer] (MEDICARE REPLACEMENT/ ADVANTAGE - HMO) Ranjit Carcamo [id number] Ranjit Carcamo Notes Date Note Type Note Provider Name and Address Organization Details Recorded Time 02/10/2025 text/html 44 yr old male presents for right shoulder pain. Has taken ibuprofen all day and it helped some. Patient has a red area to left abdomen from suboxone injection. Abelino Corbin APRN [address], [place], [address], [place] - [facility] 02/10/2025 16:32:05
--- OUTSIDE RECORDS SUMMARY | 2025-02-24 16:20 | XMS_ITS | Continuity of Care Document ---
Author Organization [facility] Rosa Elena French [facility] Address [address] [place] [address] Assessment No assessment recorded. Plan of Treatment [...] (42) tablets in dose pack [address] [facility], [address] [place] [address], [id number], 12/28/2024 14:53:22 dexametha sone sodium phosphate 4 mg/mL injection solution 2024 025 [email or web address] Not available 01/31/2025 17:17:04 Zithromax Z-Travis [address] [facility], [address] [place] [address], [id number], 02/01/2025 08:36:40 albuterol sulfate HFA 90 mcg/actua tion aerosol inhaler [address] [facility], [address] [place] [address], [id number], 12/28/2024 09:00:58 Patient TargetsNo targets recorded. Patient InstructionsNo instructions recorded. Reason for Referral None Reported. Results Created Date Observation Date Name Description Value Unit Range Abnormal Flag Note LastModifiedBy Organization Detail LastModifiedTime 02/12/2002/11/2025 XR, shoul alexsander, 2 or more view No observ ation record ed. [email or web address] [facility] [address], [place], [address], 02/13/2025 09:43:42 Result Notes None recorded. Problems Name Problem SNOMED Code Status Onset Date Resolution Date Notes Provider Name and Address Organization Details Recorded Time Misused drugs in past 80557812 Active Clementine Dieudonne null, [place] - [facility] 0 17:26:19 Chronic hepatitis C 361572727 Active 020 Ali Tita null, [place] - [facility] 0 10:07:02 Problem Notes None recorded. Procedures Surgical History Date Name Laterality Status Provider Name and Address Organization Details Recorded Time 02/01/20 25 Advance Care Planning completed Angelina Funk [place] - [facility] 01/31/2025 17:16:17 02/01/20 25 Functional Status Assessed completed Angelina Funk [place] - [facility] 01/31/2025 17:16:17 05/03/20 24 Nebulizer tx completed Abelino Corbin APRN [address], [place], [address], [place] [facility] 05/03/2024 17:25:54 08/17/19 23 [...] 17:23:23 08/17/19 02 Orthopedic Surgery completed Angelina SHAR[place] - [facility] 01/31/2025 17:16:45 Unlisted px vestibule mouth completed Clementine [facility]ap [place] [facility] 02/08/2020 17:29:00 Jaw arthroscopy/surger y completed Clementine Dieudonne [place] [facility] 02/08/2020 17:29:09 Cardiac Cath completed Clementine Chavirap [place] [facility] 02/08/2020 17:29:28 Stress test completed Angelina SHARMA - [facility] 01/31/2025 17:16:45 Imaging Results None [...] propionate 50 mcg/actuati on nasal spray,suspe nsion [place] 1 spray every day by intranasa l [...] Updated DateTime 5 185.42 cm 29.6 kg/m2 033316. 69 g 98 [degF] 88 /min 97 % 97 % 18 /min 144/88 mm[Hg] Rosa Stears [place] - [facility] 18:12:25 Social History Question Answer Notes LastModified [...] Or The Highest Degree You Have Received? [id number] Information not available 01/31/2025 Have There Been [...] Do You Have A Medical Power Of Car Unloader Helper? No Information not available 08/01/2024 What Was [...] anxious, or unable to sleep at night)? [id number] Information not available 01/31/2025 Do you have [...] 10:12:54 Hep A, adult 08/02/2018 completed Angelina [place]n, [place] - [facility] 05/03/2024 16:36:35 Tdap 09/14/2020 completed Angelina [place], [place] - [facility] 05/03/2024 16:36:35 Past Encounters Encounter ID Performer Location Encounter Start Date Encounter Closed Date Diagnosis/Indication Diagnosis SNOMED-CT Code Diagnosis ICD10 Code Diagnosis Note [id number] Abelino Corbin APRN [address] [address] 12/27/2024 17:57:01 12/27/2024 18:29:17 Acute maxillary sinusitis 28934392 J01.00 Acute bronchitis 2277630 2 J20.9 if symptoms worsen or no improvemen t returnpt refused neb Cigarette smoker 5703130 7 F17.210 medication discussed with pt in [...] (MEDICARE REPLACEMENT/ ADVANTAGE - HMO) Ranjit Carcamo [id number] Ranjit Carcamo Notes Date Note Type Note Provider Name and Address Organization Details Recorded Time 12/27/2024 text/html 44 year old male who presents to the office today with concerns ofcough, congestion, headacheyellow/gre en sinus drainagesick x 1 weekpt wants to try chantix to help him quit smoking Abelino Corbin, IT TEACHER [address], [place], [address], [place] - [facility] 12/27/2024 18:30:04
--- OUTSIDE RECORDS SUMMARY | 2025-02-24 16:20 | XMS_ITS | Data Portability ---
Author Organization [facility] Address [address] [place] [address] Assessment Encounter Date Assessment Date Assessment LastModified [...] [address], [address], [place], [address], 02/01/2025 14:08:00 HbA1c (hemoglob in A1c), blood 2024 025 [facility], [address], [place], [address], 02/01/2025 14:08:00 CMP, serum or plasma 2024 025 [facility], [address], [place], [address], 02/01/2025 14:07:59 rf (rheumato id factor), serum 2024 025 [facility], [address], Tahir F, [place], [address], 02/01/2025 14:08:01 C reactive protein, QN, serum or plasma 2024 025 [facility], [address], Tahir F, [place], [address], 02/01/2025 14:08:03 ESR (erythroc yte sedimenta tion rate), blood 2024 025 [facility], [address], Tah[place] F, [place], [address], 02/01/2025 14:08:02 CBC w/ auto diff 2024 025 [facility], [address], [place] F, [place], [address], 02/01/2025 14:07:58 MICHELLE (antinucl ear antibodie s) screen, serum 2024 025 [facility], [address], Tahir F, [place], [address], 02/01/2025 14:08:02 rapid flu (A+B) 2023 024 [facility], [address] [place] [address], [address], 08/01/2024 14:04:49 rapid SARS CoV + SARS CoV 2 Ag, QL IA, respirato ry specimen 2023 024 [facility], [address] [place] [address], [address], 08/01/2024 14:04:49 rapid SARS CoV + SARS CoV 2 Ag, QL IA, respirato ry specimen 2023 024 [facility], [address] [facility], [place], [address], 05/03/2024 17:22:31 rapid flu (A+B) 2023 024 [facility], [address] [place] [address], [place], [address], 05/03/2024 17:22:32 Referral orthopedi c surgeon referral - new Fax # [phone] CHANTAL Marroquin DO, [address] [facility] [address], [place], [address], 02/19/2025 23:08:32 urologist referral 2024 025 CHANTAL Harris Anali, [address] [place], [place] [address]y [address], [place], [address], 02/13/2025 13:22:18 Procedures None recorded. Surgeries None recorded. Imaging XR, shoulder, 2 or more view 2024 025 [facility] ([facility]), [address] [place] [address] [address], [place], [address], 02/11/2025 16:17:05 Medication Orders Salonpas (lidocain e) 4 % topical patch 2024 025 [facility], [address] [place] [address], [place], [id number], 02/13/2025 17:26:42 Chantix Starting Month Box 0.5 mg (11)-1 mg (42) tablets in dose pack 2024 025 [facility], [address] [place] [address] S, [place], [id number], 12/28/2024 14:53:22 dexametha sone sodium phosphate 4 mg/mL injection solution 2024 025 [email or web address] Not available 01/31/2025 17:17:04 Zithromax Z-Travis 250 mg tablet 2024 025 [facility], [address] [place] [address], [place], [id number], 02/01/2025 08:36:40 albuterol sulfate HFA 90 mcg/actua tion aerosol inhaler 2024 025 [facility], [address] [place] [address], [place], [id number], 12/28/2024 09:00:58 Zithromax Z-Travis 250 mg tablet 2023 025 [facility], [address] [place] [address], [place], [id number], 01/31/2025 17:16:54 fluticaso ne propionat e 50 mcg/actua tion nasal spray,[facility] 2023 025 [facility], [address] [place] [address], [place], [id number], 12/28/2024 08:35:50 albuterol sulfate 2.5 mg/3 mL (0.083 %) solution for nebulizat ion 2023 024 [email or web address] Not available 05/03/2024 17:48:20 prednison e 10 mg tablet 2023 024 [facility], [address] [place] [address], [place], [id number], 08/01/2024 13:39:34 albuterol sulfate HFA 90 mcg/actua tion aerosol inhaler 2023 024 [facility], [address] [address] [place], [id number], 05/03/2024 17:23:40 Patient TargetsNo targets recorded. Patient Instructions Encounter Date Encounter Id Patient Instructions Last Modified By Organization Details Last Modified Time 01/31/2025 [id number] advance directives: care instructions efryman Not available [...] right shoulder region new Referring Physician: [facility], Encounter Date: 02/10/2025 Results Created Date Observation Date Name Description Value Unit Range Abnormal Flag Note LastModifiedBy Organization Detail LastModifiedTime 05/03/2005/03/2024 rapid flu (A+B) Flu negati ve Not Available [address], [address], 05/03/2024 16:43:03 05/03/20 24 05/03/2024 rapid flu (A+B) Type Both A & B Not Available [address], [address], 05/03/2024 16:43:03 05/03/20 24 05/03/2024 rapid SARS CoV + SARS CoV 2 Ag, QL IA, respi rator y speci men SARS CoV antigen Negati ve Not Available [address], [address], 05/03/2024 16:42:57 08/01/20 24 08/01/2024 rapid flu (A+B) Flu negati ve Not Available [address], [address], 08/01/2024 13:30:23 08/01/20 24 08/01/2024 rapid flu (A+B) Type Both A & B Not Available [address], [address], 08/01/2024 13:30:23 08/01/20 24 08/01/2024 rapid SARS CoV + SARS CoV 2 Ag, QL IA, respi rator y speci men SARS CoV antigen Negati ve Not Available [address], [address], 08/01/2024 13:30:29 02/01/20 25 02/01/2025 CBC WITH DIFFE RENTI AL/PL ATELE T WBC 10.3 x10e3 /uL 3.4-10 .8 normal Not Available [facility] ([facility]) [address] [place], [address], 02/01/2025 14:07:58 02/01/20 25 02/01/2025 CBC WITH DIFFE RENTI AL/PL ATELE T RBC 5.02 x10e6 /uL 4.14-5 .80 normal Not Available [facility] ([facility]) [address] [place], [address], 02/01/2025 14:07:58 02/01/20 25 02/01/2025 CBC WITH DIFFE RENTI AL/PL ATELE T hemoglobin 15.9 g/dL 13.0-1 7.7 normal Not Available [facility] ([facility]) [address] [place], [address], 02/01/2025 14:07:58 02/01/20 25 02/01/2025 CBC WITH DIFFE RENTI AL/PL ATELE T hematocrit 47.8 % 37.5-5 1.0 normal Not Available [facility] ([facility]) [address] [place], [address], 02/01/2025 14:07:58 02/01/20 25 02/01/2025 CBC WITH DIFFE RENTI AL/PL ATELE T MCV 95 fL 79-97 normal Not Available [facility] ([facility]) [address] [facility], [place], [address], 02/01/2025 14:07:58 02/01/20 25 02/01/2025 CBC WITH DIFFE RENTI AL/PL ATELE T MCH 31.7 pg 26.6-3 3.0 normal Not Available [facility] ([facility]) [address] [place], [address], 02/01/2025 14:07:58 02/01/20 25 02/01/2025 CBC WITH DIFFE RENTI AL/PL ATELE T MCHC 33.3 g/dL 31.5-3 5.7 normal Not Available [facility] ([facility]) [address] [place], [address], 02/01/2025 14:07:58 02/01/20 25 02/01/2025 CBC WITH DIFFE RENTI AL/PL ATELE T RDW 12.7 % 11.6-1 5.4 Not Available [facility] ([facility]) [address] [place], [address], 02/01/2025 14:07:58 02/01/20 25 02/01/2025 CBC WITH DIFFE RENTI AL/PL ATELE T platelets 291 x10e3 /uL 150-45 0 normal Not Available [facility] ([facility]) [address] [place], [address], 02/01/2025 14:07:58 02/01/20 25 02/01/2025 CBC WITH DIFFE RENTI AL/PL ATELE T neutrophils 67 % not estab. normal Not Available [facility] ([facility]) [address] [facility], [place], [address], 02/01/2025 14:07:58 02/01/20 25 02/01/2025 CBC WITH DIFFE RENTI AL/PL ATELE T lymphs 25 % not estab. normal Not Available [facility] ([facility]) [address] [facility], [place], [address], 02/01/2025 14:07:58 02/01/20 25 02/01/2025 CBC WITH DIFFE RENTI AL/PL ATELE T monocytes 5 % not estab. normal Not Available [facility] ([facility]) [address] [facility], [place], [address], 02/01/2025 14:07:58 02/01/20 25 02/01/2025 CBC WITH DIFFE RENTI AL/PL ATELE T eos 2 % not estab. normal Not Available [facility] ([facility]) [address] [place], [address], 02/01/2025 14:07:58 02/01/20 25 02/01/2025 CBC WITH DIFFE RENTI AL/PL ATELE T basos 1 % not estab. normal Not Available [facility] ([facility]) [address] [facility], [place], [address], 02/01/2025 14:07:58 02/01/20 25 02/01/2025 CBC WITH DIFFE RENTI AL/PL ATELE T immature cells DOUGH PANNER Not Available [facility] ([facility]) [address] [place], [address], 02/01/2025 14:07:58 02/01/20 25 02/01/2025 CBC WITH DIFFE RENTI AL/PL ATELE T neutrophils (absolute) 7.0 x10e3 /uL 1.4-7. 0 normal Not Available [facility] ([facility]) [address] [facility], [place], [address], 02/01/2025 14:07:58 02/01/20 25 02/01/2025 CBC WITH DIFFE RENTI AL/PL ATELE T lymphs (absolute) 2.6 x10e3 /uL 0.7-3. 1 normal Not Available [facility] ([facility]) [address] [place], [address], 02/01/2025 14:07:58 02/01/20 25 02/01/2025 CBC WITH DIFFE RENTI AL/PL ATELE T monocytes(ab solute) 0.5 x10e3 /uL 0.1-0. 9 normal Not Available [facility] ([facility]) [address] [facility], [place], [address], 02/01/2025 14:07:58 02/01/20 25 02/01/2025 CBC WITH DIFFE RENTI AL/PL ATELE T eos (absolute) 0.2 x10e3 /uL 0.0-0. 4 normal Not Available [facility] ([facility]) [address] [facility], [place], [address], 02/01/2025 14:07:58 02/01/20 25 02/01/2025 CBC WITH DIFFE RENTI AL/PL ATELE T baso (absolute) 0.1 x10e3 /uL 0.0-0. 2 normal Not Available [facility] ([facility]) [address] [place], [address], 02/01/2025 14:07:58 02/01/20 25 02/01/2025 CBC WITH DIFFE RENTI AL/PL ATELE T immature granulocytes 0 % not estab. Not Available [facility] ([facility]) [address] [facility], [place], [address], 02/01/2025 14:07:58 02/01/20 25 02/01/2025 CBC WITH DIFFE RENTI AL/PL ATELE T immature grans (abs) 0.0 x10e3 /uL 0.0-0. 1 Not Available [facility] ([facility]) [address] [facility], [place], [address], 02/01/2025 14:07:58 02/01/20 25 02/01/2025 CBC WITH DIFFE RENTI AL/PL ATELE T NRBC DOUGH PANNER Not Available [facility] ([facility]) [address] [facility], [place], [address], 02/01/2025 14:07:58 02/01/20 25 02/01/2025 CBC WITH DIFFE RENTI AL/PL ATELE T hematology comments: DOUGH PANNER Not Available [facility] ([facility]) [address] [facility], [place], [address], 02/01/2025 14:07:58 02/01/20 25 02/01/2025 COMP. METAB OLIC PANEL (14) glucose 85 mg/dL 70-99 normal Not Available [facility] ([facility]) [address] [facility], [place], [address], 02/01/2025 14:07:59 02/01/20 25 02/01/2025 COMP. METAB OLIC PANEL (14) BUN 14 mg/dL 6-24 normal Not Available [facility] ([facility]) [address] [facility], [place], [address], 02/01/2025 14:07:59 02/01/20 25 02/01/2025 COMP. METAB OLIC PANEL (14) creatinine 0.95 mg/dL 0.76-1 .27 normal Not Available [facility] ([facility]) [address] [place], [address], 02/01/2025 14:07:59 02/01/20 25 02/01/2025 COMP. METAB OLIC PANEL (14) eGFR 100 mL/mi n/1.7 3 >59 normal Not Available [facility] ([facility]) [address] [place], [address], 02/01/2025 14:07:59 02/01/20 25 02/01/2025 COMP. METAB OLIC PANEL (14) BUN/creatini ne ratio 15 9-20 normal Not Available [facility] ([facility]) [address] [place], [address], 02/01/2025 14:07:59 02/01/20 25 02/01/2025 COMP. METAB OLIC PANEL (14) sodium 138 mmol/ L 134-14 4 normal Not Available [facility] ([facility]) [address] [facility] [place], [address], 02/01/2025 14:07:59 02/01/20 25 02/01/2025 COMP. METAB OLIC PANEL (14) potassium 4.4 mmol/ L 3.5-5. 2 normal Not Available [facility] ([facility]) [address] [facility] [place], [address], 02/01/2025 14:07:59 02/01/20 25 02/01/2025 COMP. METAB OLIC PANEL (14) chloride 100 mmol/ L 96-106 normal Not Available [facility] ([facility]) [address] [facility] [place], [address], 02/01/2025 14:07:59 02/01/20 25 02/01/2025 COMP. METAB OLIC PANEL (14) carbon dioxide, total 20 mmol/ L 20-29 normal Not Available [facility] ([facility]) [address] [facility], [address], 02/01/2025 14:07:59 02/01/20 25 02/01/2025 COMP. METAB OLIC PANEL (14) calcium 9.1 mg/dL 8.7-10 .2 normal Not Available [facility] ([place] [facility]) [address] [facility] [place], [address], 02/01/2025 14:07:59 02/01/20 25 02/01/2025 COMP. METAB OLIC PANEL (14) protein, total 6.9 g/dL 6.0-8. 5 normal Not Available [facility] ([facility]) [address], [place], [address], 02/01/2025 14:07:59 02/01/20 25 02/01/2025 COMP. METAB OLIC PANEL (14) albumin 4.2 g/dL 4.1-5. 1 normal Not Available [facility] ([facility]) [address] [place], [address], 02/01/2025 14:07:59 02/01/20 25 02/01/2025 COMP. METAB OLIC PANEL (14) globulin, total 2.7 g/dL 1.5-4. 5 Not Available [facility] ([facility]) [address] [place], [address], 02/01/2025 14:07:59 02/01/20 25 02/01/2025 COMP. METAB OLIC PANEL (14) bilirubin, total 0.3 mg/dL 0.0-1. 2 normal Not Available [facility] ([facility]) [address] [place], [address], 02/01/2025 14:07:59 02/01/20 25 02/01/2025 COMP. METAB OLIC PANEL (14) alkaline phosphatase 113 IU/L 44-121 normal Not Available [facility] ([facility]) [address] [place], [address], 02/01/2025 14:07:59 02/01/20 25 02/01/2025 COMP. METAB OLIC PANEL (14) AST (SGOT) 27 IU/L 0-40 normal Not Available [facility] ([facility]) [address] [facility], [place], [address], 02/01/2025 14:07:59 06/17/20 25 02/01/2025 COMP. METAB OLIC PANEL (14) ALT (SGPT) 41 IU/L 0-44 normal Not Available [facility] ([facility]) [address] [facility], [place], [address], 02/01/2025 14:07:59 02/01/20 25 02/01/2025 PSA TOTAL (REFL EX TO FREE) prostate [...] t be inter prete d as absol [place] evide nce of the prese nce or absen ce of monty [place] se. Not Available [facility] ([facility]) [address] [facility], [place], [address], 02/01/2025 14:08:00 02/01/2002/01/2025 PSA TOTAL (REFL EX TO FREE) reflex criteria Commen t The perce nt free PSA is perfo rmed on a refle x basis only when the total PSA is betwe en 4.0 and 10.0 ng/mL . Not Available [facility] ([facility]) [address] [facility], [place], [address], 02/01/2025 14:08:00 02/01/2002/01/2025 HEMOG LOBIN A1C hemoglobin A1C 5.9 % 4.8-5. 6 above high normal Predi abete s: 5.7 - 6.4 Diabe ayesha: >6.4 Glyce vasyl contr ol for adult s with diabe ayesha: <7.0 Not Available [facility] ([facility]) [address] [place], [address], 02/01/2025 14:08:00 02/01/20 25 02/01/2025 RHEUM ATOID FACTO R (RF) rheumatoid factor (rf) <10.0 IU/mL <14.0 Not Available [facility] ([facility]) [address] [facility], [place], [address], 02/01/2025 14:08:01 02/01/20 25 02/01/2025 ANTIN UCLEA R AB MULTI PLEX RFX 9 MICHELLE direct Negati ve negati ve Not Available [facility] ([facility]) [address] [facility], [place], [address], 02/01/2025 14:08:02 02/01/20 25 02/01/2025 SEDIM ENTAT ION RATE- WESTE RGREN sedimentatio n rate-westerg darrell 15 mm/HR 0-15 normal Not Available [facility] ([facility]) [address] [place], [address], 02/01/2025 14:08:02 02/01/20 25 02/01/2025 C-HELENA CTIVE PROTE IN, QUANT C-reactive protein, quant 7 mg/L 0-10 normal Not Available [facility] ([facility]) [address] [place], [address], 02/01/2025 14:08:03 02/01/20 25 02/01/2025 PLEAS E NOTE please note Commen t The date and/o r time of colle ction was not indic ated on the requi sitio n as requi red by state and [place] law. The date of recei pt of the speci men was used as the colle ction date if not suppl ied. Not Available [facility] ([facility]) [address] [facility], [place], [address], 02/01/2025 14:08:04 02/12/20 25 02/11/2025 XR, shoul alexsander, 2 or more view No observ ation [facility] ed[facility] [address], [place], [address], 02/13/2025 09:43:42 Result Notes None recorded. Problems Name Problem SNOMED Code Status Onset Date Resolution Date Notes Provider Name and Address Organization Details Recorded Time Misused drugs in past 72959463 Active Clementine [place] null, [place] - [facility] 0 17:26:19 Chronic hepatitis C 284962204 Active 020 Ali Tita null, [place] - [facility] 0 10:07:02 Problem Notes None recorded. Procedures Surgical History Date Name Laterality Status Provider Name and Address Organization Details Recorded Time 02/01/20 25 Advance Care Planning completed Angelina Funk [place] - [facility] 01/31/2025 17:16:17 02/01/20 25 Functional Status Assessed completed Angelina Funk [place] - [facility] 01/31/2025 17:16:17 05/03/20 24 Nebulizer tx completed Abelino Corbin, KEN [address], [place], [address], [place] - [facility] 05/03/2024 17:25:54 08/17/19 23 [...] 08/17/19 02 Orthopedic Surgery completed Angelina Funk [place] - [facility] 01/31/2025 17:16:45 Unlisted px vestibule mouth completed Clementine Dieudonne [place] - [facility] 02/08/2020 17:29:00 Jaw arthroscopy/surger y completed [facility] Die[place] - [facility] 02/08/2020 17:29:09 Cardiac Cath completed Clementine Dieudonne [place] - [facility] 02/08/2020 17:29:28 Stress test completed Angelina Funk [facility] 01/31/2025 17:16:45 Imaging Results None recorded. [...] propionate 50 mcg/actuati on nasal spray,suspe nsion [place] 1 spray every day by intranasa l [...] Updated DateTime 5 185.42 cm 29.6 kg/m2 318486. 69 g 98 [degF] 88 /min 97 % 97 % 18 /min 144/88 mm[Hg] Rosa Ste[place] - [facility] 18:12:25 Date Recorded Body height Body mass index (BMI) Body weight Heart rate Oxygen saturation Oxygen saturation in Arterial blood by Pulse oximetry Respiratory rate Systolic And Diastolic Provider Name and Address Organization Details Last Updated DateTime 5 185.42 cm 29.7 kg/m2 425872. 28 g 86 /min 95 % 95 % 18 /min 136/86 mm[Hg] Angelina Funk [place] - [facility] 5 17:25:58 Date Recorded Body height Body mass index (BMI) Body weight Heart rate Oxygen saturation Oxygen saturation in Arterial blood by Pulse oximetry Respiratory rate Systolic And Diastolic Provider Name and Address Organization Details Last Updated DateTime 5 185.42 cm 29.9 kg/m2 959094. 47 g 81 /min 97 % 97 % 18 /min 124/78 mm[Hg] Angelina Funk [place] - [facility] 5 15:06:53 Date Recorded Heart rate Oxygen saturation Oxygen saturation in Arterial blood by Pulse oximetry Respiratory rate Body temperature Body weight Systolic And Diastolic Provider Name and Address Organization Details Last Updated DateTime 4 80 /min 98 % 98 % 20 /min 98 [degF] 750733. 91 g 118/78 mm[Hg] Angelina Funk [place] - [facility] 4 16:43:55 Date Recorded Body height Respiratory rate Body mass index (BMI) Body weight Body temperature Heart rate Oxygen saturation Oxygen saturation in Arterial blood by Pulse oximetry Systolic And Diastolic Provider Name and Address Organization Details Last Updated DateTime 4 185.42 cm 18 /min 29.4 kg/m2 121941. 1 g 97.9 [degF] 84 /min 96 % 96 % 136/84 mm[Hg] Rosa Merazmari [place] - [facility] 4 13:29:19 Social History Question Answer Notes LastModified by Organizat ion Details LastModified Time Tobacco Smoking Status Current Every Day Smoker Clementine shen [place] - [facility] 02/08/2020 17:27:23 Do You Have [...] Or The Highest Degree You Have Received? [id number] Information not available 01/31/2025 Have There Been [...] Do You Have A Medical Power Of Coat Tailor? No Information not available 08/01/2024 What Was [...] anxious, or unable to sleep at night)? [id number] Information not available 01/31/2025 Do you have [...] 16:36:35 Tdap 09/14/2020 completed Angelina Funk null, [place] - [facility] 05/03/2024 16:36:35 Past Encounters Encounter ID Performer Location Encounter Start Date Encounter Closed Date Diagnosis/Indication Diagnosis SNOMED-CT Code Diagnosis ICD10 Code Diagnosis Note [id number] Loki Rivers MD [address] [place] [address] 02/08/2020 17:13:38 02/08/2020 17:44:02 Neck pain 29316180 M54.2 See above under right shoulder pain Venereal d isease screening 867904539 Z11.3 Active or passive immunization 131809718 Z23 Tells me he had Tdap/Td within last few years. Patient has declined to get Influenza vaccine despite counsellin g and education Hyperlipid emia screening 254234019 Z13.220 Overweight 321103244 E66 .3 Take a low fat diet, exercise and loose weight. Follow up with us in 3 months Pain of sh oulder region 03216475 M25.519 XRS of right shoulder in ER showed mild degenerati ve changes of glenohumer al joint. Take Ibuprofen as prescribed . Get XRS of c spine. See us back or go to Er right away should get worse or develop any new symptoms or complaints . Follow up with us in 02 weeks. If continues having pain consider MRI of right shoulder < [id number] Loki Rivers MD [address] [place] [address] 02/28/2020 09:04:50 02/28/2020 10:55:04 Increased frequency of urination 004113680 R35.0 Urinary symptoms as detailed in [place] for last one year or so. AUA/IPSS score is 29. Get a renal bladder US. Will try Flomax. I asked him to see us back or go to Er right away should he gets worse or develops any new symptoms or complaints . Follow up with us in a week. Leukocytosis 745143500 D 72.829 Will repeat CBC with differenti al and then go from there Viral hepatitis C 530136 07 B19.20 Will check labs. Of note RUQ US negative Neck pain 39180645 M54.2 XRS of C spine unremarkab le. Ibuprofen as recommende d during last office visit with me. Referred for PT. See us back or go to Er right away should get worse or develop any new symptoms or complaints . Follow up with us in a couple of week. [id number] Loki Rivers MD [address] [place] [address] 03/06/2020 08:29:02 03/06/2020 09:57:23 Tobacco user 007484628 Z72.0 Patient has declined to take any medicines to help him quit smoking despite counsellin g and education Active or passive immunization 019958781 Z23 Patient tells me he had Tdap/Td within last few years. He declined to get Influenza vaccine (Flu shot) despite counsellin g and education. Get vaccines for Hep A at 0 and 6 months and that for Hep B at 0, 1 and 6 months. Increased frequency of urination 732031658 R35.0 Pt was last seen with symptoms suggestive of BPH. He was started on Flomax. His symptoms have improved dramatical ly since starting Flomax. Continue Flomax. See us back or go to Er right away should gets worse or develops any new symptoms or complaints . Follow up with us in about 3 months Leukocytosis 843033362 D 72.829 Will check CBC with differenti al and if WBC count still comes back high will have him see Hematologi st Hyperlipidemia 81023321 E78.5 Take Pravastati n. Take a low fat diet, exercise and loose weight. Get fasting lipid panel in 2 months and see us for same. Get hepatic function panel in 4 weeks Viral hepatitis C 285173 07 B19.20 HCV RNA not detected. RUQ US negative. I recommende d he should get repeat HFP and HCV RNA PCR in 3 months and see us for same. Screening for malignant neoplasm of prostate 669205143 Z12.5 Benign pro static hyperplasia 278360893 N40.1 See above under increased frequency of urination - Continue Flomax [id number] Loki Rivers MD [address] [place] [address] 03/29/2020 12:02:13 03/29/2020 13:13:59 Benign prostatic hyperplasia 015668669 N40.1 Flomax caused retrograde ejaculatio n / failure to ejaculate. Stop Flomax. I recommende d he should start taking UROXATRAL and keep appointmen t as coming up with Urologist. See us back or go to Er right away should get worse or develop any new symptoms or complaints . Follow up with us in couple of weeks. Viral hepatitis C 496976 B19.20 Will check labs. Avoid TYLENOL and do not take NSAIDS without consulting physician. Screening for Chlamydia trachomatis 239226176 Z11.8 Increased frequency of urination 799341721 R35.0 Pt tells me his symptoms got [...] to 5 days. Active or passive immunization 326171151 Z23 Get 2nd dose of Hep B vaccine on 04.06.20 and see us for same. [id number] Abelino Corbin APRN [place] [facility] [address] [place] [address] 05/03/2024 16:29:44 05/03/2024 17:25:49 Acute bronchitis [id number] J20.9 if symptoms worsen or no improvemen t return [id number] Abelino Burkettjoseluis [address] [address] 08/01/2024 13:19:59 08/01/2024 14:12:19 Acute maxillary sinusitis [id number] J01.00 [id number] Abelino Burkettjoseluis[address] [address] 12/27/2024 17:57:01 12/27/2024 18:29:17 Acute maxillary sinusitis [id number] J01.00 Acute bronchitis [id number] J20.9 if symptoms worsen or no improvemen t returnpt refused [facility] Cigarette smoker [id number] F17.210 medication discussed with pt in great detail, any issues return or go to ed [facility] [id number] Abelino Burkettjoseluis[address] [address] 01/31/2025 16:55:28 01/31/2025 18:06:41 Adult health examination [id number] Z00.00 Depression screening [id number] Z13.31 A depression screening was completed via a standardiz ed screening tool. 5 minutes were spent discussing depression screening results and risk factors. Examinatio n of blood pressure [id number] Z01.30 Diet education [id number] Z71.3 Counseling [id number] Z71 .82 Exercise counseling . Patient encouraged to exercise 30 minutes 5 days a week. At [facility] ed risk for falls 304003163 Z91.81 STEADI FAST screening score of . Advance care planning 71 [id number] Z71.89 Increased frequency of urination [id number] R35.0 labsrefer to urology Pain of mu ltiple joints 62411607 M25.50 labs [id number] Cucaeri Corbin [address] [address] 02/10/2025 14:56:46 02/10/2025 15:30:22 Pain of right shoulder region [id number] M25.511 iceresttyl enol/motri nlidocaine patchxrayo rtho referral Health Concerns Section Related Observation LastModified by Organization Detai ls LastModified Time None Recorded Concern Status LastModified by Organization Details LastModified Time None Recorded Advance Directives Directive N: Payers Insurance Date Sequence Insurance Name Policy Number Policy Hall Covered Member ID Hall Member ID Guarantor Name 02/10/2025 1 [employer] (MEDICARE REPLACEMENT/AD VANTAGE - HMO) Ranjit Carcamo [id number] Ranjit Carcamo 03/19/2020 1 UNSPECIFIED REMIT PAYOR Ranjit Hess Carlos Alberto Notes Date Note Type Note Provider Name and Address Organization Details Recorded Time 05/03/2024 text/html 44 yr old male presents for cough, wheezing, headache for the last 3 days. other family has same symptoms Abelino Corbin APRN [address], [place], [address], [place] - [facility] 05/03/2024 17:26:05 08/01/2024 text/html 44 year old male who presents to the office today with concerns of cough, congestion,sinus pressure,tenderness, headache, body aches. pt states symptoms have been going on for over a month and its getting worse Edgaroswaldo Corbin APRN [address], [place], [address], [place] - [facility] 08/01/2024 14:06:17 12/27/2024 text/html 44 year old male who presents to the office today with concerns ofcough, congestion, headacheyellow/green sinus drainagesick x 1 weekpt wants to try chantix to help him quit smoking Edgaroswaldo KEN huggins [address], [place], [address], [place] [facility] 12/27/2024 18:30:04 01/31/2025 text/html [...] months-year. last labs in 2019. Abelino Corbin, [employer] OPPORT[employer]ITY ASSISTANT [address], [place], [address], [place] [facility] 01/31/2025 18:18:23 02/10/2025 text/html 44 yr old male presents for right shoulder pain. Has taken ibuprofen all day and it helped some. Patient has a red area to left abdomen from suboxone injection. Abelino Corbin, EQUAL OPPORTUNITY ASSISTANT [address], [place], [address], [place] [facility] 02/10/2025 16:32:05
--- NOTE | 2025-02-24 16:30 | MR_ITS ---
PROCEDURE INFORMATION: Exam: MR Right Upper Extremity Joint Without Contrast; Shoulder Exam date and time: 02/24/2025 4:24 PM Age: 44 years old Clinical indication: Right shoulder pain anterior and posterior x 1 year worse in the last month. No injury / trauma TECHNIQUE: Imaging protocol: Magnetic resonance imaging of the right upper extremity without contrast. Exam focused on the shoulder. COMPARISON: CR XR SHOULDER RT MIN 2V 02/11/2025 2:47 PM FINDINGS: Bones/joints: Mild acromioclavicular joint osteoarthrosis. The glenohumeral joint is intact. The bone marrow signal is normal. No acute fracture is present. Near anatomic alignment. Glenoid labrum: There is a displaced tear of the posteroinferior labrum extending to the posterosuperior labrum with large paralabral cyst measuring 2.8 x 1.9 cm. Circumferential tearing extends to the anterior superior and anterior inferior labrum as well. The paralabral cyst appears to contain cartilage signal intensity joint bodies measuring up to 6 mm. Bursae: Minimal subacromial bursitis. Supraspinatus tendon: Mild supraspinatus tendinosis with low-grade bursal sided tearing. There is intermediate grade interstitial muscle tearing present. No atrophy. Infraspinatus tendon: Infraspinatus has low-grade bursal sided tearing with tendinosis. Subscapularis tendon: There is subscapularis tendinosis with low-grade articular sided tearing. Teres minor tendon: The teres minor tendon is intact. Tendon of biceps brachii: The biceps tendon is intact. Glenohumeral ligaments: The glenohumeral ligaments are normal. Soft tissues: Soft tissues are unremarkable as visualized. IMPRESSION: 1. Displaced tearing of the posteroinferior labrum with large paralabral cyst measuring up to 2.8 cm and circumferential labral tear extension. 2. Rotator cuff tendinopathy with low-grade bursal sided supraspinatus and infraspinatus tearing. There is an intermediate grade interstitial tear also present in supraspinatus. Low-grade subscapularis tearing. No muscular atrophy. 3. Mild acromioclavicular joint osteoarthrosis.
== END 2025-02-24 23:59 | disposition home or self-care (01) ==
LOC: RAD 16:16
PROVIDERS: PCP Nurse Practitioner Family; Visit Provider Physician Assistant
DX: S43.491A Other sprain of right shoulder joint, initial encounter (principal); M25.811 Other specified joint disorders, right shoulder; M75.101 Unspecified rotator cuff tear or rupture of right shoulder, not specified as traumatic; M19.011 Primary osteoarthritis, right shoulder; M67.813 Other specified disorders of tendon, right shoulder
CPT/HCPCS: 73221

== ENCOUNTER 2025-03-06 13:44 | Outpatient (CLI) | payer MEDICAID, SELFPAY ==
--- OUTSIDE RECORDS SUMMARY | 2025-03-06 13:47 | XMS_ITS | Clinical Summary ---
Author Organization [facility] [place] [address] Care Team Providers Care Surgery Scheduling Coordinator Name Role Phone Unavailable Primary Care Provider [...]
[2025-03-06 14:23] LABS: Hematocrit 42.8 % (42.0-52.0); Hemoglobin 14.5 g/dL (14.1-18.0); Immature Granulocytes % 0.5 %; Mean Corpuscular HGB Conc 33.9 g/dL (31.8-35.4); Mean Corpuscular Hemoglobin 30.9 pg (27.0-31.2); Mean Corpuscular Volume 91.1 fl (80-94); Nucleated Red Blood Cells % 0 %; Platelet Count 294 K/mm3 (142-424); Red Blood Count 4.70 M/mm3 (4.60-6.20); Red Cell Distribution Width-SD 41.3 fL; White Blood Count 10.5 K/mm3 (4.8-10.8)
[2025-03-07 08:13] LABS: FSH 6.3 mIU/mL (1.5-12.4); LH 3.1 mIU/mL (1.7-8.6); PSA, Free 0.11 ng/mL; Testosterone,Total 136 ng/dL (264-916)
== END 2025-03-06 23:59 | disposition home or self-care (01) ==
LOC: LAB 13:45
PROVIDERS: PCP Nurse Practitioner Family; Visit Provider Urology
DX: N36.44 Muscular disorders of urethra (principal); N32.0 Bladder-neck obstruction; N52.9 Male erectile dysfunction, unspecified
CPT/HCPCS: 36415; 82627; 82670; 83001; 83002; 84153; 84154; 84270; 84403; 85025

== ENCOUNTER 2025-04-24 13:30 | Outpatient (CLI) | payer MEDICAID, SELFPAY ==
--- OUTSIDE RECORDS SUMMARY | 2025-04-24 13:34 | XMS_ITS | Clinical Summary ---
Author Organization [facility] [place] [address] Care Team Providers Care Real Estate Sales Manager Name Role Phone Unavailable Primary Care Provider [...] Colonography 2023 COVID-19 Vaccine (2023-2 5 season) 2025 Influenza Vaccine (#1) 2025 Meningococcal B Vaccine Aged Out No l onger eligible based on patient's age to complete this topic Pneumococcal Vaccine 0-49 Aged Out No longer eligible based on patient's age to complete this topic
[2025-04-24 14:45] LABS: Hematocrit 44.1 % (42.0-52.0); Hemoglobin 14.6 g/dL (14.1-18.0); Mean Corpuscular HGB Conc 33.1 g/dL (31.8-35.4); Mean Corpuscular Hemoglobin 31.0 pg (27.0-31.2); Mean Corpuscular Volume 93.6 fl (80-94); Platelet Count 300 K/mm3 (142-424); Red Blood Count 4.71 M/mm3 (4.60-6.20); White Blood Count 11.9 K/mm3 (4.8-10.8)
[2025-04-24 15:22] LABS: RBC Morphology Normal; Total Cells Counted 100
[2025-04-24 16:07] LABS: Microscopic, Urine URINE MICROSCOPIC (MICROSCOPIC)
[2025-04-24 20:41] LABS: Bilirubin,Urine Negative (Negative); Color,Urine YELLOW (Yellow); Glucose,Urine (UA) Negative (Negative); Ketones,Urine Negative (Negative); Leukocyte Esterase,Urine Negative (Negative); PH,Urine 6.0 (5.0-8.5); Protein,Urine Negative (Negative); Specific Gravity, Urine 1.020 (1.005-1.030); Urobilinogen,Urine 1.0 EU/dl (0.2)
[2025-04-24 21:05] LABS: Bacteria,Urine Trace /lpf; Mucus,Urine 1+ /lpf; WBC,Urine Occasional #/hpf (0-3)
[2025-04-26 13:18] LABS: Testosterone,Total 340 ng/dL (264-916)
== END 2025-04-24 23:59 | disposition home or self-care (01) ==
LOC: LAB 13:31
PROVIDERS: PCP Nurse Practitioner Family; Visit Provider Urology
DX: N32.0 Bladder-neck obstruction (principal); N36.44 Muscular disorders of urethra; N40.1 Benign prostatic hyperplasia with lower urinary tract symptoms
CPT/HCPCS: 36415; 81001; 84270; 84403; 85007; 85014; 85018; 85048; 85049

== ENCOUNTER 2025-05-29 13:21 | Outpatient (CLI) | payer MEDICAID, SELFPAY ==
[2025-05-30 08:16] LABS: Testosterone,Total 725 ng/dL (264-916)
== END 2025-05-29 23:59 | disposition home or self-care (01) ==
PROVIDERS: PCP Nurse Practitioner Family; Visit Provider Urology
DX: N52.9 Male erectile dysfunction, unspecified (principal); N40.1 Benign prostatic hyperplasia with lower urinary tract symptoms
CPT/HCPCS: 36415; 84270; 84403